=== PATIENT | female | born 1965 | race Caucasian/White ===

== ENCOUNTER → 2016-10-15 | Outpatient (CLI) | payer OTHER | END | disposition home or self-care (01) | LOC: MAMMO 12:09 | DX: Z12.31 Encounter for screening mammogram for malignant neoplasm of breast (principal) ==

== ENCOUNTER → 2016-12-20 | Day surgery (SDC) | payer OTHER ==
[~2016-12-20] VITALS: Ht 177.8 cm; Wt 81.6 kg
[~2016-12-20] MED LIST: AMITRIPTYLINE25 MG PO; CYMBALTA20 M1 PO; DILANTIN100 MG PO; VALIUM5 MG PO
--- NOTE | ~2016-12-20 | O ---
[place], [place] OPERATIVE NOTE NAME: REMBERTO KUMARI UNIT #: [id number] ROOM: DOCTOR: GEMMA MILES MD BIRTHDATE: [birth year] DOS: HISTORY OF PRESENT ILLNESS: This is a 51-year-old patient who presented with chief complaint of change in bowel habit, alteration in BM, periodically bright blood per stool. ALLERGIES: PENICILLIN. FAMILY HISTORY: Noncontributory. PAST SURGICAL HISTORY: Hysterectomy, bilateral cataracts, hypertension. PAST MEDICAL HISTORY: Hypertension, seizure. SOCIAL HISTORY: Smoker, nonalcohol consumer. PROCEDURE: Today's procedure as part of investigation is colonoscopy. PREMEDICATION: Versed and Diprivan. SCOPE: Olympus folding colonoscope 10L video. REPORT: After putting the patient in the left lateral position and after application of lubricant to rectal pouch and digital examination, scope was introduced. Thereafter, under direct visualization, I advanced through the length of colon without difficulty. Scattered diverticulosis was identified. Base of the cecum explored, appendiceal orifice identified, and ileocecal valve was defined. No other acute pathology was noticed. The patient extubated, tolerated procedure well. IMPRESSION: Diverticulosis, rectal bleed could have been from superficial mucosal bleed. PLAN AND DISCUSSION: An element of IBS with diarrhea dominance could be the possibility of her abdominal distress. Therefore, dicyclomine 10 mg 1 every day would be recommended. As far as rectal bleed, a trial of hemorrhoids suppository Preparation H one at bedtime for 3 nights in a row would be used. DIET: High fiber diet. ACTIVITY: Ad cheyenne. FOLLOWUP: Routinely with you in office and with us in GI Clinic. [place], [place] OPERATIVE NOTE NAME: JOSÉ MIGUEL KUMARIMARY UNIT #: [id number] ROOM: DOCTOR: GEMMA MILES MD BIRTHDATE: [birth year] GEMMA MILES MD CM:OPRECORD:OPERATIVE NOTE [id number] GEMMA MILES MD 12/20/16 1623 interface
[2016-12-20 13:15] VITALS: BP 119/77
[2016-12-20 15:55] VITALS: BP 122/86
== END | disposition home or self-care (01) ==
LOC: SDC 12-17 12:30
DX: K57.30 Diverticulosis of large intestine without perforation or abscess without bleeding (principal); I10 Essential (primary) hypertension; F17.210 Nicotine dependence, cigarettes, uncomplicated; J44.9 Chronic obstructive pulmonary disease, unspecified; F41.9 Anxiety disorder, unspecified; Z86.73 Personal history of transient ischemic attack (TIA), and cerebral infarction without residual deficits; Z88.0 Allergy status to penicillin; Z90.710 Acquired absence of both cervix and uterus; Z83.3 Family history of diabetes mellitus

== ENCOUNTER → 2017-02-07 | Outpatient (CLI) | payer OTHER | END | disposition home or self-care (01) | LOC: MRI 08:50 | DX: S09.90XA Unspecified injury of head, initial encounter (principal); G40.909 Epilepsy, unspecified, not intractable, without status epilepticus; R41.3 Other amnesia; X58.XXXA Exposure to other specified factors, initial encounter; Y93.89 Activity, other specified; Y92.89 Other specified places as the place of occurrence of the external cause; Y99.8 Other external cause status ==

== ENCOUNTER 2017-04-05 18:38 | Emergency (ER) | payer OTHER ==
[~2017-04-05] VITALS: Wt 81.6 kg
[2017-04-05 18:42] VITALS: BP 151/80
== END 2017-04-05 20:08 | disposition home or self-care (01) ==
LOC: ED 18:38
DX: S20.211A Contusion of right front wall of thorax, initial encounter (principal); F17.200 Nicotine dependence, unspecified, uncomplicated; Z90.49 Acquired absence of other specified parts of digestive tract; Z88.0 Allergy status to penicillin; W01.0XXA Fall on same level from slipping, tripping and stumbling without subsequent striking against object, initial encounter; Y93.01 Activity, walking, marching and hiking; Y92.023 Bedroom in mobile home as the place of occurrence of the external cause; Y99.8 Other external cause status

== ENCOUNTER 2017-05-10 16:42 | Emergency (ER) | payer OTHER ==
[~2017-05-10] VITALS: Ht 165.1 cm; Wt 77.1 kg
[2017-05-10 18:15] VITALS: BP 134/84
== END 2017-05-10 20:06 | disposition home or self-care (01) ==
LOC: ED 16:42
DX: R51 Headache (principal); R03.0 Elevated blood-pressure reading, without diagnosis of hypertension; F17.200 Nicotine dependence, unspecified, uncomplicated; Z88.0 Allergy status to penicillin; Z79.899 Other long term (current) drug therapy

== ENCOUNTER 2017-10-28 21:55 | Emergency (ER) | payer OTHER ==
[~2017-10-28] VITALS: Ht 170.1 cm; Wt 89.8 kg
[2017-10-28 22:00] VITALS: BP 128/68
[2017-10-28] MEDS ORDERED: IBUPROFEN600 MG PO (22:44)
== END 2017-10-28 23:43 | disposition home or self-care (01) ==
LOC: ED 21:55
DX: M25.532 Pain in left wrist (principal); M25.562 Pain in left knee; Z88.1 Allergy status to other antibiotic agents; F17.200 Nicotine dependence, unspecified, uncomplicated; Z90.49 Acquired absence of other specified parts of digestive tract; Z79.899 Other long term (current) drug therapy

== ENCOUNTER → 2018-04-08 | Outpatient (CLI) | payer OTHER ==
[~2018-04-08] MED LIST changes: +IBUPROFEN600 MG PO
[2018-04-08 11:43] LABS: BASO # 0.1 10*3/uL (0.0-0.1); BASO % 0.5 % (0.0-1.0); EOS # 0.1 10*3/uL (0.0-0.4); HEMATOCRIT 39.2 % (37.0-47.0); LYMPH # 1.7 10*3/uL (1.3-4.4); LYMPH % 17.6 % (27.0-41.0); MEAN CORPUSCULAR HGB 30.2 pg (27.0-31.0); MEAN CORPUSCULAR HGB CONC 33.2 g/dl (33.0-37.0); MEAN PLATELET VOLUME 10.6 fl (9.6-12.3); MONO # 0.8 10*3/uL (0.1-1.0); MONO % 8.4 % (3.0-9.0); PLATELET COUNT AUTOMATED 224 10*3/uL (130-400); RED BLOOD COUNT 4.31 10*6/uL (4.10-5.10); RED CELL DISTRI WIDTH 13.3 % (0-14.5); WHITE BLOOD COUNT 9.7 10*3/uL (4.8-10.8)
[2018-04-08 12:18] LABS: ALBUMIN 3.5 gm/dl (3.1-4.5); ALKALINE PHOSPHATASE 112 U/L (45-117); SGOT/AST 16 IU/L (3-35); SGPT/ALT 17 U/L (12-78); TOTAL PROTEIN 8.4 gm/dL (6.4-8.2)
[2018-04-08 12:23] LABS: BILIRUBIN, DIRECT < 0.1 mg/dL (0.0-0.2)
[2018-04-09 08:11] LABS: RHEUMATOID ARTHRITIS FACTOR 16.4 IU/mL (0.0-13.9)
[2018-04-09 14:07] LABS: ANTI-RNP ANTIBODIES <0.2 AI (0.0-0.9)
[2018-04-10 13:05] LABS: PTT-LA 34.1 sec (0.0-51.9)
[2018-04-10 22:07] LABS: CCP ANTIBODIES IGG/IGA 4 units (0-19)
[2018-04-11 08:14] LABS: LUPUS DRVVT 53.6 sec (0.0-47.0)
[2018-04-11 09:08] LABS: LUPUS REFLEX INTERPRETATION Comment: (.)
[2018-04-14 17:07] LABS: HLA-B27 ANTIGEN Negative (.)
== END | disposition home or self-care (01) ==
LOC: LAB 11:17
PROVIDERS: Orthopaedic Surgery
DX: M25.50 Pain in unspecified joint (principal)

== ENCOUNTER → 2018-06-05 | Outpatient (CLI) | payer OTHER ==
[2018-06-05 09:41] LABS: ALBUMIN 3.4 gm/dl (3.1-4.5); ALKALINE PHOSPHATASE 108 U/L (45-117); BUN 6 mg/dl (7-24); CHLORIDE 103 mmol/L (98-107); CREATININE 0.74 mg/dL (0.55-1.02); POTASSIUM 3.8 mmol/L (3.5-5.1); SGOT/AST 12 IU/L (3-35); SGPT/ALT 17 U/L (12-78); SODIUM 135 mmol/L (136-145); TOTAL PROTEIN 7.7 gm/dL (6.4-8.2)
== END | disposition home or self-care (01) ==
LOC: CT 05-29 09:00
PROVIDERS: Family Medicine
DX: J44.9 Chronic obstructive pulmonary disease, unspecified (principal); R63.4 Abnormal weight loss; K62.5 Hemorrhage of anus and rectum; H65.193 Other acute nonsuppurative otitis media, bilateral; Z90.49 Acquired absence of other specified parts of digestive tract

== ENCOUNTER → 2018-10-22 | Outpatient (CLI) | payer OTHER ==
[2018-10-22 12:49] LABS: BASO # 0.1 10*3/uL (0.0-0.1); BASO % 0.9 % (0.0-1.0); EOS # 0.3 10*3/uL (0.0-0.4); EOS % 5.4 % (1.0-4.0); HEMATOCRIT 39.7 % (37.0-47.0); LYMPH # 1.6 10*3/uL (1.3-4.4); LYMPH % 26.7 % (27.0-41.0); MEAN CORPUSCULAR HGB 31.1 pg (27.0-31.0); MEAN CORPUSCULAR HGB CONC 32.7 g/dl (33.0-37.0); MEAN PLATELET VOLUME 10.7 fl (9.6-12.3); MONO # 0.6 10*3/uL (0.1-1.0); MONO % 9.9 % (3.0-9.0); NEUT # 3.3 10*3/uL (2.3-7.9); NEUT % 56.8 % (47.0-73.0); PLATELET COUNT AUTOMATED 200 10*3/uL (130-400); RED BLOOD COUNT 4.18 10*6/uL (4.10-5.10); RED CELL DISTRI WIDTH 13.2 % (0-14.5); WHITE BLOOD COUNT 5.9 10*3/uL (4.8-10.8)
[2018-10-22 13:01] LABS: BILIRUBIN NEGATIVE (NEGATIVE); BLOOD NEGATIVE (NEGATIVE); CLARITY SL CLOUDY (CLEAR); COLOR YELLOW (YELLOW); GLUCOSE NEGATIVE (NEGATIVE); KETONE NEGATIVE (NEGATIVE); LEUKO ESTERASE NEGATIVE (NEGATIVE); NITRITE NEGATIVE (NEGATIVE); SPECIFIC GRAVITY 1.015 (1.005-1.030); UROBILINOGEN 0.2 E.U./dl (0.2-1.0)
[2018-10-22 13:13] LABS: ALBUMIN 3.5 gm/dl (3.1-4.5); ALKALINE PHOSPHATASE 108 U/L (45-117); BUN 6 mg/dl (7-24); CHLORIDE 106 mmol/L (98-107); CREATININE 0.73 mg/dL (0.55-1.02); POTASSIUM 3.6 mmol/L (3.5-5.1); SGOT/AST 18 IU/L (3-35); SGPT/ALT 30 U/L (12-78); SODIUM 141 mmol/L (136-145); TOTAL PROTEIN 7.5 gm/dL (6.4-8.2)
[2018-10-22 13:25] LABS: BACTERIA TRACE; MUCOUS 2+; WBC 0-2 wbc/hpf (0-5)
== END | disposition home or self-care (01) ==
LOC: US 09:30 → LAB 10:26
PROVIDERS: Family Medicine
DX: Z12.31 Encounter for screening mammogram for malignant neoplasm of breast (principal); N39.0 Urinary tract infection, site not specified; R63.4 Abnormal weight loss; R30.0 Dysuria

== ENCOUNTER → 2018-12-16 | Outpatient (CLI) | payer OTHER | END | disposition home or self-care (01) | LOC: US 11-17 13:30 | DX: N28.89 Other specified disorders of kidney and ureter (principal); R30.0 Dysuria ==

== ENCOUNTER 2019-06-17 12:46 | Emergency (ER) | payer OTHER ==
[2019-06-17 13:28] LABS: BASO % 0.4 % (0.0-1.0); EOS # 0.2 10*3/uL (0.0-0.4); EOS % 1.9 % (1.0-4.0); HEMATOCRIT 41.7 % (37.0-47.0); HEMOGLOBIN 13.5 g/dl (12.0-16.0); LYMPH # 1.3 10*3/uL (1.3-4.4); LYMPH % 11.6 % (27.0-41.0); MEAN CELL VOLUME 94.3 fl (81.0-99.0); MEAN CORPUSCULAR HGB 30.5 pg (27.0-31.0); MEAN CORPUSCULAR HGB CONC 32.4 g/dl (33.0-37.0); MONO # 0.8 10*3/uL (0.1-1.0); NEUT # 8.5 10*3/uL (2.3-7.9); NEUT % 78.6 % (47.0-73.0); PLATELET COUNT AUTOMATED 201 10*3/uL (130-400); RED BLOOD COUNT 4.42 10*6/uL (4.10-5.10); RED CELL DISTRI WIDTH 13.3 % (0-14.5); WHITE BLOOD COUNT 10.8 10*3/uL (4.8-10.8)
[2019-06-17 13:39] LABS: ACT PARTIAL THROMBO TIME 22.8 SECONDS (20.0-32.1); INTERNATIONAL NORM RATIO 0.9 (2.0-3.5)
[2019-06-17 13:43] LABS: ALBUMIN 3.5 gm/dl (3.1-4.5); ALKALINE PHOSPHATASE 132 U/L (45-117); BUN 11 mg/dl (7-24); CHLORIDE 102 mmol/L (98-107); CREATININE 0.72 mg/dL (0.55-1.02); POTASSIUM 3.9 mmol/L (3.5-5.1); SGOT/AST 30 IU/L (3-35); SGPT/ALT 56 U/L (12-78); SODIUM 133 mmol/L (136-145); TOTAL PROTEIN 7.8 gm/dL (6.4-8.2)
[2019-06-17 16:16] VITALS: BP 163/73
[2019-06-17] MEDS ORDERED: PERCOCET 5-3251 EACH PO (17:25)
== END 2019-06-17 17:45 | disposition home or self-care (01) ==
LOC: ED 12:46
PROVIDERS: Emergency Medicine
DX: S52.531A Colles' fracture of right radius, initial encounter for closed fracture (principal); J44.9 Chronic obstructive pulmonary disease, unspecified; F17.200 Nicotine dependence, unspecified, uncomplicated; Z86.73 Personal history of transient ischemic attack (TIA), and cerebral infarction without residual deficits; Z88.0 Allergy status to penicillin; Z79.899 Other long term (current) drug therapy; Z90.49 Acquired absence of other specified parts of digestive tract; W19.XXXA Unspecified fall, initial encounter; Y93.01 Activity, walking, marching and hiking; Y92.093 Driveway of other non-institutional residence as the place of occurrence of the external cause; Y99.8 Other external cause status

== ENCOUNTER → 2019-07-03 | Outpatient (CLI) | payer OTHER ==
[~2019-07-03] MED LIST changes: +PERCOCET 5-3251 EACH PO
== END | disposition home or self-care (01) ==
LOC: CT 07-01 16:00
DX: S52.501A Unspecified fracture of the lower end of right radius, initial encounter for closed fracture (principal); S52.601A Unspecified fracture of lower end of right ulna, initial encounter for closed fracture; M25.431 Effusion, right wrist; X58.XXXD Exposure to other specified factors, subsequent encounter; Y93.89 Activity, other specified; Y92.89 Other specified places as the place of occurrence of the external cause; Y99.8 Other external cause status

== ENCOUNTER 2019-07-21 11:21 | Emergency (ER) | payer OTHER ==
[~2019-07-21] VITALS: Ht 157.4 cm; Wt 54.4 kg
[2019-07-21 11:44] LABS: HEMATOCRIT 34.1 % (37.0-47.0); HEMOGLOBIN 11.9 g/dl (12.0-16.0); MEAN CELL VOLUME 88.1 fl (81.0-99.0); MEAN CORPUSCULAR HGB 30.7 pg (27.0-31.0); MEAN CORPUSCULAR HGB CONC 34.9 g/dl (33.0-37.0); MEAN PLATELET VOLUME 9.6 fl (9.6-12.3); PLATELET COUNT AUTOMATED 491 10*3/uL (130-400); RED BLOOD COUNT 3.87 10*6/uL (4.10-5.10); WHITE BLOOD COUNT 16.2 10*3/uL (4.8-10.8)
[2019-07-21 11:54] LABS: ACT PARTIAL THROMBO TIME 28.5 SECONDS (20.0-32.1); INTERNATIONAL NORM RATIO 0.9 (2.0-3.5)
[2019-07-21 11:59] LABS: ALBUMIN 2.7 gm/dl (3.1-4.5); ALKALINE PHOSPHATASE 331 U/L (45-117); BUN 9 mg/dl (7-24); CHLORIDE 81 mmol/L (98-107); CREATININE 0.51 mg/dL (0.55-1.02); POTASSIUM 3.5 mmol/L (3.5-5.1); SGOT/AST 55 IU/L (3-35); SGPT/ALT 52 U/L (12-78); TOTAL PROTEIN 7.3 gm/dL (6.4-8.2)
[2019-07-21 12:04] LABS: TOTAL CELLS COUNTED 100 #CELLS
[2019-07-21 12:05] LABS: PLATELET SUFFICIENCY HIGH (NORMAL); SODIUM 118 mmol/L (136-145); TROPONIN I < 0.015 ng/ml (<0.045); VACUOLATION OF NEUTROPHILS SLIGHT
[2019-07-21 15:22] VITALS: BP 137/79
== END 2019-07-21 15:36 | disposition short-term general hospital (02) ==
LOC: ED 11:21
PROVIDERS: Emergency Medicine
DX: S12.400A Unspecified displaced fracture of fifth cervical vertebra, initial encounter for closed fracture (principal); J93.9 Pneumothorax, unspecified; E87.1 Hypo-osmolality and hyponatremia; F17.200 Nicotine dependence, unspecified, uncomplicated; Z88.0 Allergy status to penicillin; Z79.899 Other long term (current) drug therapy; W10.8XXA Fall (on) (from) other stairs and steps, initial encounter; Y93.89 Activity, other specified; Y92.89 Other specified places as the place of occurrence of the external cause; Y99.8 Other external cause status

== ENCOUNTER 2020-02-08 20:48 | Inpatient (IN) | payer OTHER ==
[2020-02-08] VITALS (11 sets, daily range): BP systolic 78–127; BP diastolic 42–82
[~2020-02-08] VITALS: Ht 162.6 cm; Wt 61.4 kg
--- NOTE | 2020-02-08 20:49 | NUR ---
PATIENT STARTED VOMITING UPON ARRIVAL. VOMIT IS WHITE IN COLOR, NO DISTRESS NOTED AT THIS TIME. SUCTION SET UP AT BEDSIDE.
--- NOTE | 2020-02-08 20:59 | NUR ---
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 MS FUNEZ ALSO REPORTS A NOTE WAS FOUND WITH PT THAT STATED "EVERONE BEING MEAN TO ME, GOD WILL" AND THEN SCRIBBLES AFTER IT.FAMILY CONCERN WITH POSSIBILITY PT MAY HAVE TAKEN TOO MUCH MEDICATION. MD CARLISLE UPDATED WITH INFORMATION OBTAINED FROM SISTER Amelia ARTHUR.
--- NOTE | 2020-02-08 21:10 | NUR ---
PATIENT STARTING TO BE SLIGHTLY COMBATIVE AND TENSING UP AT THIS TIME. DR CARLISLE AWARE. ORDER FOR ATIVAN GIVEN, DR CARLISLE TO ENTER ORDER.
[2020-02-08] MEDS ORDERED: PROPRANOLOL HCL10 MG PO (21:26)
[2020-02-08] MEDS ORDERED: TOPIRAMATE50 M2 PO (21:27)
[2020-02-08] MEDS ORDERED: REXULTI2 MG PO (21:28)
--- NOTE | 2020-02-08 21:34 | NUR ---
PATIENT RESTING COMFORTABLY IN BED AT THIS TIME AFTER ADMINISTERATION OF ATIVAN PER MD ORDER. IVF INFUSING PER ORDERS. RN WILL CONTINUE TO MONITOR.
[2020-02-08 21:36] LABS: BASO # 0.1 10*3/uL (0.0-0.1); BASO % 0.5 % (0.0-1.0); EOS # 0.4 10*3/uL (0.0-0.4); EOS % 2.6 % (1.0-4.0); HEMATOCRIT 37.8 % (37.0-47.0); LYMPH # 2.3 10*3/uL (1.3-4.4); LYMPH % 15.2 % (27.0-41.0); MEAN CORPUSCULAR HGB CONC 33.3 g/dl (33.0-37.0); MEAN PLATELET VOLUME 10.3 fl (9.6-12.3); MONO # 1.2 10*3/uL (0.1-1.0); MONO % 8.1 % (3.0-9.0); NEUT # 10.9 10*3/uL (2.3-7.9); NEUT % 73.1 % (47.0-73.0); PLATELET COUNT AUTOMATED 266 10*3/uL (130-400); WHITE BLOOD COUNT 14.9 10*3/uL (4.8-10.8)
[2020-02-08 21:38] LABS: BILIRUBIN NEGATIVE; CLARITY TURBID (CLEAR); COLOR YELLOW (YELLOW); GLUCOSE NEGATIVE; KETONE NEGATIVE
[2020-02-08 21:39] LABS: BLOOD NEGATIVE (NEGATIVE); LEUKO ESTERASE NEGATIVE (NEGATIVE); NITRITE NEGATIVE (NEGATIVE); PH 8.5 (4.5-8.0); SPECIFIC GRAVITY 1.015 (1.001-1.030); UROBILINOGEN 0.2 E.U./dl (0.0-1.0)
[2020-02-08 21:43] LABS: BACTERIA 2+; RBC 0-2 rbc/hpf (0-2); WBC 0-2 wbc/hpf (0-5)
[2020-02-08 21:45] LABS: URINE AMPHETAMINES < 1000 (1000ng/ml); URINE BARBITURATES < 200 (200ng/ml); URINE BENZODIAZEPINES < 200 (200ng/ml); URINE CANNABINOIDS (THC) < 50 (50ng/ml); URINE COCAINE < 300 (300ng/ml); URINE METHADONE < 300 (300ng/ml); URINE OPIATES < 300 (300ng/ml)
[2020-02-08 21:46] LABS: URINE PHENCYCLIDINE < 25 (25ng/ml)
[2020-02-08 21:48] LABS: ACT PARTIAL THROMBO TIME 22.8 SECONDS (20.0-32.1)
[2020-02-08 21:52] LABS: ACETAMINOPHEN (TYLENOL) 14.8 ug/ml (10-30); ALBUMIN 3.5 gm/dl (3.1-4.5); ALKALINE PHOSPHATASE 159 U/L (45-117); BUN 9 mg/dl (7-24); CHLORIDE 97 mmol/L (98-107); CREATININE 0.82 mg/dL (0.55-1.02); POTASSIUM 3.9 mmol/L (3.5-5.1); SGOT/AST 50 IU/L (3-35); SGPT/ALT 47 U/L (12-78); SODIUM 131 mmol/L (136-145); TOTAL PROTEIN 7.3 gm/dL (6.4-8.2)
[2020-02-08 21:53] LABS: ETHYL ALCOHOL < 3.0 mg/dl (<3); FREE T4 0.69 ng/dl (0.76-1.46); TROPONIN I < 0.015 ng/ml (<0.045)
--- NOTE | 2020-02-08 22:05 | NUR ---
PATIENT APPEARS TO BE HAVING SEIZURE AT THIS TIME. PATIENT CONTRACTED FOR APPROXIMATELY [address] ORESTES ALFORD.
--- NOTE | 2020-02-08 22:06 | NUR ---
SPOKE WITH OMEGA AT [facility]. PER OMEGA: TREAT SXS: POSSIBLE BUT NOT LIMITED TO - DROWSINESS, HYPOTENSION, HYPERTENSION, TACHYCARDIA, BRADYCARDIA, SEIZURE ACTIVITIES (TX WITH BENZO'S LIBRAL AMOUNT) MONITOR: VITALS, IV NAC, OBS OVERNIGHT, MAY TAKE A WHILE FOR PATIENT TO COME AROUND
--- NOTE | 2020-02-08 22:30 | NUR ---
BLOOD PRESSURE 86/55, DR CARLISLE AWARE. PRESSURE BAGGING FLUIDS IN AT THIS TIME.
--- NOTE | 2020-02-08 22:50 | NUR ---
DR CARLISLE IN WITH RESIDENTS AT THIS TIME FOR CENTRAL LINE INSERTION. PATIENT UNABLE TO SIGN CONSENT AT THIS TIME DUE TO BEING LETHARGIC.
[2020-02-09] VITALS (63 sets, daily range): BP systolic 94–148; BP diastolic 38–93
--- NOTE | 2020-02-09 00:08 | NUR ---
PATIENT HAS ABRASION TO RIGHT SIDE OF CHEEK, LEFT ARM HAS MULTIPLE SMALL HEALING SCABS AT THIS TIME. A COUPLE SCATTERED BRUISES NOTED ON BODY.
--- NOTE | 2020-02-09 00:15 | NUR ---
POSION CONTROL CALLED FOR UPDATE ON PATIENT AT THIS TIME. RECOMMENDATIONS: STARTING MUCOMYST AND ASA LEVEL [id number], IF ASA IS 30 OR GREATER PATIENT MAY NEED BICARB DRIP.
--- NOTE | 2020-02-09 00:25 | NUR ---
A 54, admitted to [facility]U, under the services of LAZARUS Murillo DO with a diagnosis of DRUG OVERDOSE. Chief complaint is DRUG OVERDOSE, FOUND UNRESPONSIVE. Patient arrived via stretcher from ER. Monitor applied. Initial assessment completed. Vital signs taken and recorded. LAZARUS MURILLO DO notified of admission to the unit. Orders received. See assessment for past medical history, medications and allergies. Patient and/or family oriented to unit. [facility] visitation policy reviewed. Clothing/patient valuable form completed. SHAVONNE LARSEN
[2020-02-09] MEDS ORDERED: SYMB160 INH (00:47)
[2020-02-09] MEDS ORDERED: VITAMIN D350 MCG PO (00:48)
[2020-02-09] MEDS ORDERED: Ventolin 02.5 MG/3 M INH (00:49)
--- NOTE | 2020-02-09 00:52 | NUR ---
MED REC UPDATED TO REFILLED PERSCRIPTIONS WITHIN THE LAST MONTH, PT. UNABLE TO VERIFY HOME MEDS. SHAVONNE LARSEN RN
[2020-02-09 06:10] LABS: BASO % 0.5 % (0.0-1.0); EOS # 0.2 10*3/uL (0.0-0.4); EOS % 3.3 % (1.0-4.0); HEMATOCRIT 34.5 % (37.0-47.0); LYMPH # 1.9 10*3/uL (1.3-4.4); LYMPH % 26.6 % (27.0-41.0); MEAN CELL VOLUME 90.1 fl (81.0-99.0); MEAN CORPUSCULAR HGB 30.3 pg (27.0-31.0); MEAN CORPUSCULAR HGB CONC 33.6 g/dl (33.0-37.0); MEAN PLATELET VOLUME 10.2 fl (9.6-12.3); MONO # 1.4 10*3/uL (0.1-1.0); MONO % 19.1 % (3.0-9.0); NEUT # 3.7 10*3/uL (2.3-7.9); NEUT % 50.2 % (47.0-73.0); PLATELET COUNT AUTOMATED 258 10*3/uL (130-400); RED BLOOD COUNT 3.83 10*6/uL (4.10-5.10); RED CELL DISTRI WIDTH 12.8 % (0-14.5); WHITE BLOOD COUNT 7.3 10*3/uL (4.8-10.8)
[2020-02-09 06:34] LABS: ALBUMIN 2.9 gm/dl (3.1-4.5); BUN 9 mg/dl (7-24); CHLORIDE 103 mmol/L (98-107); CREATININE 0.81 mg/dL (0.55-1.02); POTASSIUM 3.4 mmol/L (3.5-5.1); SGOT/AST 35 IU/L (3-35); SGPT/ALT 51 U/L (12-78); SODIUM 138 mmol/L (136-145); TOTAL PROTEIN 6.4 gm/dL (6.4-8.2)
[2020-02-09 06:43] LABS: ALKALINE PHOSPHATASE 127 U/L (45-117)
[2020-02-09 06:53] LABS: PHENYTOIN (DILANTIN) 47.5 ug/ml (10-20)
--- NOTE | 2020-02-09 07:30 | NUR ---
PT WILL AWAKEN TO STIMULI. PT'S SPEECH IS VERY GARBLED. PUPILS ARE DILATED BUT REACTIVE. PT WILL AT TIMES FOLLOW SIMPLE COMMANDS. PT REMAINS ON A LEVOPHED GTT. TITRATING GTT FOR MAP OF 65. IV NS AND ACETADOTE GTTS CONTINUE PER ORDER. LUNG [place] DIM. GHOSH PATNET FOR STRAW COLORED URINE. NO PERIPHERAL EDEMA NOTED AT THIS TIME.
[2020-02-09 07:52] LABS: VITAMIN D, 25-HYDROXY 32.5 ng/mL (30-100)
--- NOTE | 2020-02-09 08:19 | NUR ---
PHYSICAL THERAPY PT screen received, Pt admitted for Dilantan overdose. Please consult PT if pt has functional decline below baseline. Bruce Archibald SPT Nellie Loco PT
--- NOTE | 2020-02-09 08:27 | NUR ---
Nursing screen received and chart reviewed. Patient admitted for dilantin overdose and hypotension. If patient has a decline in ADLs, transfers, or functional mobility, please send OT orders. Thank you. Radha Garcia, OTR/L
--- NOTE | 2020-02-09 08:30 | NUR ---
PT HAD A LARGE GRREN LIQUID EMESIS. HOB ELEVATED HIGHER AND PT WAS TURNED TO HER SIDE. PT'S POX DROPPED INTO MID 80'S. 4L NC OXYGEN APPLIED. PT NOW HAS SCATTERED RHONCHI AND A MOIST COUGH. DR ALONSO NOTIFIED.
--- NOTE | 2020-02-09 08:45 | NUR ---
MEDICATED PT PER PRN ORDER WITH ZOFRAN.
--- NOTE | 2020-02-09 08:45 | NUR ---
PT CONTINUES TO FOLLOW SIMPLE COMMANDS. PT IS UNABLE TO SQUEEZE WITH HER RIGHT HAND BUT CAN SQUEEZE WITH HER LEFT HAND. A SURGICAL SCAR NOTED TO HER RIGHT WRIST. PT STIFFFENS HERSELF WHEN WE ARE ROLLING HER TO CLEAN HER OR CHANGE HER LINENS.
--- NOTE | 2020-02-09 09:30 | NUR ---
NO FURTHER EMESIS. EARLEIR ZOFRAN EFFECTIVE.
--- NOTE | 2020-02-09 09:45 | NUR ---
DR POWELL IN TO SEE PT. POISON CONTROL CALLED FOR AN UPDATE. DR ALONSO AND DR POWELL UPDATED ON THEIR SUGGESTIONS.
--- NOTE | 2020-02-09 10:20 | NUR ---
Spoke to mental health CMKarel, at [phone]. He states patient does live in an abandoned home with her muhynx-oh-rbq's son. Karel has tried to get her into assisted living but she doesn't have the income. He was looking at getting her into a homeless long term. Will need to reach out to Jeannie Joe if a referral is needed to an inpatient psych.
--- NOTE | 2020-02-09 11:00 | NUR ---
PT AWKAE AND ABLE TO FOLLOW SIMPLE COMMANDS. PT DID PULL OFF OXYGEN MULTIPLE TIMES. POX 95-100% RA. WILL LEAVE O2 OFF AT PRESENT TIME.
--- NOTE | 2020-02-09 12:16 | NUR ---
PT HAD ANOTHER SMALL GREEN EMESIS. NOT TIME YET FOR ZOFRAN. DR NORWOOD NOTIFIED. CONTINUING TO TITRATE IV LEVPHED GTT OFF ABLE FOR MAP OF 65. WILL CONTINUE TO MONITOR PT.
--- NOTE | 2020-02-09 14:00 | NUR ---
IV LEVOPHED GTT TITRATED OFF. WILL CONTINUE TO MONITOR PT.
[2020-02-09 14:10] LABS: ALKALINE PHOSPHATASE 127 U/L (45-117); BUN 6 mg/dl (7-24); CHLORIDE 105 mmol/L (98-107); CREATININE 0.57 mg/dL (0.55-1.02); POTASSIUM 3.5 mmol/L (3.5-5.1); SGOT/AST 23 IU/L (3-35); SGPT/ALT 40 U/L (12-78); SODIUM 138 mmol/L (136-145); TOTAL PROTEIN 6.5 gm/dL (6.4-8.2)
--- NOTE | 2020-02-09 14:18 | NUR ---
DR ALONSO IN TO EVALUATE PT AGAIN.
--- NOTE | 2020-02-09 14:30 | NUR ---
SPEECH PATHOLOGY Nursing screen complete. This dept. will be available if speech or swallowing concerns arise. SYDNYE BAEZ MSCCC-MORTGAGE COUNSELOR
--- NOTE | 2020-02-09 15:03 | NUR ---
DR ALONSO UPDATED ON PT'S BASELINE AFTER I CALLED AND SPOKE WITH PT'S SISTER,ELA,. ELA STATES PT DOES NOT USUALLY HAVE GARBLED SPEECH AND IS ABLE TO AMBULATE WITHOUT ASSISTIVE DEVICES. DR ALONSO ALSO NOTIFIED OF DILANTIN LEVEL OF 51.4.
--- NOTE | 2020-02-09 15:03 | NUR ---
Shift chart check completed.
--- NOTE | 2020-02-09 17:11 | NUR ---
PATIENT THRASHING ABOUT, VERY STIFF AND UNABLE TO FOLLOW COMMANDS..SIDE RAILS PADDED PATIENT THROWING HEAD ABOUT
--- NOTE | 2020-02-09 17:48 | NUR ---
NURSES AIDES SITTING AT BEDSIDE THE PATIENT IS CONFUSED, TRYING TO GET UP AND PULLING AT LINES..UNABLE TO RE-ORIENT PATIENT
--- NOTE | 2020-02-09 18:24 | NUR ---
PERIODS OF THRASHING ABOUT ALTERNATING WITH PERIODS OF SLEEPING.. FREQ REMINDERS THAT SHE IS IN THE HOSPITAL AND THAT SHE HAS A GHOSH IN..PATIENT UNABLE TO FOLLOW COMMANDS BUT GET A RARE WORD OR TWO OUT
[2020-02-09 18:55] LABS: ALKALINE PHOSPHATASE 129 U/L (45-117); BUN 5 mg/dl (7-24); CHLORIDE 105 mmol/L (98-107); CREATININE 0.58 mg/dL (0.55-1.02); POTASSIUM 3.2 mmol/L (3.5-5.1); SGOT/AST 24 IU/L (3-35); SGPT/ALT 39 U/L (12-78); SODIUM 137 mmol/L (136-145); TOTAL PROTEIN 6.7 gm/dL (6.4-8.2)
--- NOTE | 2020-02-09 19:11 | NUR ---
DR ORNELAS CALLED WITH LAB RESULTS... PATIENT DRANK A JUICE & 2 APPLE SAUCE WITH ASSIST FROM STAFF
--- NOTE | 2020-02-09 19:40 | NUR ---
PT CONFUSED AND COMBATIVE. PT ATTEMPTING TO CLIMB OUT OF BED AND TEAR CLOTHES OFF. PT ALSO YELLING OUT THAT SHE WANTS TO GO TO HER BEDROOM UP STAIRS. ATTEMPTS TO REORIENT PT HAVE BEEN UNSUCCESSFUL. DR ORNELAS NOTIFIED AND NEW ORDER FOR 1:1 SITTER GIVEN.
--- NOTE | 2020-02-09 20:00 | NUR ---
PT IN BED AWAKE AND AGITATED. NODS OFF PERIODICALLY FOR APPROXIMATELY 2 OR 3 MINUTES THEN AWAKE AGAIN. CONFUSED AND COMBATIVE AT TIMES. ATTEMPTS TO GET OUT OF BED. PULLS AT CLOTHES AND TRIES TO RIP THEM OFF. ATTEMPTING TO PULL DIAPER OFF. RIGHT IJ MLC PATENT, DRESSING DRY AND INTACT, IVF'S INFUSING ORDERED WITHOUT DIFFICULTY. GHOSH PATENT FOR CLEAR SANDY URINE. RESP NONLABORED. NO ACUTE DISTRESS NOTED.
--- NOTE | 2020-02-09 20:30 | NUR ---
PT CONTINUES TO ATTEMPT TO GET OUT OF BED. PULLING AT CLOTHES AND PULLING AT BEDDING. FLOPPING ABOUT IN BED. ANY ATTEMPTS TO REORIENT PT ARE UNSUCCESSFUL. SITTING AT PT BEDSIDE FOR PT SAFETY
--- NOTE | 2020-02-09 20:45 | NUR ---
PT ATTEMPTING TO GET OUT OF BED. STATES SHE WANTS TO GO UPSTAIRS TO HER OWN BEDROOM. ATTEMPTING TO REOIRIENT PT TO SURROUNDINGS AND PT STATES THAT SHE IS GOING TO PUNCH ME IN THE FACE.
--- NOTE | 2020-02-09 20:59 | NUR ---
POISON CONTROL CALLED AND UPDATED ON LATEST LABS. THEY SAID THAT ONCE THIS ACETADOTE BAG IS DONE INFUSING NO MORE IS NEEDED. ALSO THAT MAY GIVE PT ANY BENZOS NEEDED TO KEEP PT CALM.
--- NOTE | 2020-02-09 22:45 | NUR ---
SPOKE WITH KENYETTA FROM [facility]. PATIENT INFORMATION PROVIDED. CALLBACK NUMBER PROVIDED.
--- NOTE | 2020-02-09 23:40 | NUR ---
ATIVAN AND ZOFRAN GIVEN AT THIS TIME. PATIENT THRASHING IN BED AND TRYING TO GET OUT OF BED AND SWINGING AT STAFF. WILL CONTINUE TO MONITOR.
[2020-02-10] VITALS (7 sets, daily range): BP systolic 84–125; BP diastolic 53–75
--- NOTE | 2020-02-10 00:30 | NUR ---
ATIVAN AND ZOFRAN EFFECTIVE. PATIENT RESTING COMFORTABLY AT THIS TIME. NO S/S OF DISTRESS NOTED. 1:1 AT THE BEDSIDE.
--- NOTE | 2020-02-10 02:00 | NUR ---
DR. BASILIO NOTIFIED OF PHENYTOIN RESULT. NOTED THAT RESULT HAS PREVIOUSLY PEAKED AND NOW TRENDING DOWN. WILL CONTINUE TO MONITOR.
[2020-02-10 06:05] LABS: ALBUMIN 2.7 gm/dl (3.1-4.5); ALKALINE PHOSPHATASE 115 U/L (45-117); BUN 5 mg/dl (7-24); CHLORIDE 105 mmol/L (98-107); CREATININE 0.46 mg/dL (0.55-1.02); SGOT/AST 18 IU/L (3-35); SGPT/ALT 31 U/L (12-78); SODIUM 137 mmol/L (136-145); TOTAL PROTEIN 6.2 gm/dL (6.4-8.2)
--- NOTE | 2020-02-10 06:30 | NUR ---
DR. ORNELAS NOTIFIED OF POTASSIUM LEVEL DECREASING. ORDERS RECEIVED.
[2020-02-10 06:53] LABS: BASO % 0.5 % (0.0-1.0); EOS # 0.1 10*3/uL (0.0-0.4); EOS % 1.2 % (1.0-4.0); HEMATOCRIT 32.6 % (37.0-47.0); LYMPH # 1.5 10*3/uL (1.3-4.4); LYMPH % 23.2 % (27.0-41.0); MEAN CELL VOLUME 92.6 fl (81.0-99.0); MEAN CORPUSCULAR HGB 30.7 pg (27.0-31.0); MEAN CORPUSCULAR HGB CONC 33.1 g/dl (33.0-37.0); MEAN PLATELET VOLUME 11.5 fl (9.6-12.3); MONO # 0.8 10*3/uL (0.1-1.0); MONO % 11.4 % (3.0-9.0); NEUT # 4.2 10*3/uL (2.3-7.9); NEUT % 63.2 % (47.0-73.0); RED BLOOD COUNT 3.52 10*6/uL (4.10-5.10); RED CELL DISTRI WIDTH 13.4 % (0-14.5); WHITE BLOOD COUNT 6.6 10*3/uL (4.8-10.8)
[2020-02-10 06:55] LABS: PLATELET COUNT AUTOMATED 178 10*3/uL (130-400)
--- NOTE | 2020-02-10 08:00 | NUR ---
PATIENT AWAKE AND ALERT. ORIENTED TO PERSON AND PLACE. SHE COULD STATE SHE IS IN A HOSPITAL JUST NOT WHICH SPECIFIC ONE. I&E WHEEZING NOTED. POX 96% RA. MOIST NON-PRODUCTIVE COUGH. GHOSH PATENT AND DRAINING CLEAR SANDY.
--- NOTE | 2020-02-10 09:56 | NUR ---
PATIENT HAD A LARGE EMESIS. MEDICATED WITH ZOFRAN PER PRN ORDER. WILL CONTINUE TO MONITOR.
--- NOTE | 2020-02-10 15:50 | NUR ---
PATIENT C/O NAUSEA. MEDICATED WITH ZOFRAN PER PRN ORDER.
--- NOTE | 2020-02-10 21:07 | NUR ---
Spoke with patient, she knows she is at [facility], doesnt know how she got here, but did say she tried to commit suicide by taking pills, doesnt know what ones. She states she did it, because no one likes her. I asked about family and she stated she lives with them, but they dont like her. I explained she would get the help she needed. Patient still attempting to get out of bed and is restless. Ativan given, will monitor and reassess.
[2020-02-11] VITALS: BP 101/63
[2020-02-11 04:03] VITALS: BP 109/66
[2020-02-11 05:51] LABS: BUN 7 mg/dl (7-24); CHLORIDE 105 mmol/L (98-107); CREATININE 0.54 mg/dL (0.55-1.02); POTASSIUM 3.3 mmol/L (3.5-5.1); SODIUM 137 mmol/L (136-145)
[2020-02-11 06:00] LABS: PHENYTOIN (DILANTIN) 44.6 ug/ml (10-20)
[2020-02-11 06:02] LABS: BASO % 0.4 % (0.0-1.0); EOS # 0.2 10*3/uL (0.0-0.4); EOS % 3.4 % (1.0-4.0); HEMATOCRIT 31.2 % (37.0-47.0); LYMPH # 1.5 10*3/uL (1.3-4.4); LYMPH % 28.9 % (27.0-41.0); MEAN CELL VOLUME 93.1 fl (81.0-99.0); MEAN CORPUSCULAR HGB 30.7 pg (27.0-31.0); MEAN PLATELET VOLUME 11.3 fl (9.6-12.3); MONO # 0.7 10*3/uL (0.1-1.0); MONO % 13.2 % (3.0-9.0); NEUT # 2.8 10*3/uL (2.3-7.9); NEUT % 53.9 % (47.0-73.0); PLATELET COUNT AUTOMATED 187 10*3/uL (130-400); RED BLOOD COUNT 3.35 10*6/uL (4.10-5.10); RED CELL DISTRI WIDTH 13.2 % (0-14.5); WHITE BLOOD COUNT 5.2 10*3/uL (4.8-10.8)
--- NOTE | 2020-02-11 06:03 | NUR ---
Patient has slept throughout the night after dose of ativan. Patient awoke knowing where she was but unable to comprehend that she had a catheter. Then patient began to ask where she was and why she was here.
--- NOTE | 2020-02-11 07:57 | NUR ---
[facility] NOTIFIED OF NEW CONSULT FOR .
[2020-02-11 08:00] VITALS: BP 126/66
--- NOTE | 2020-02-11 08:00 | NUR ---
PATIENT AWAKE AND ALERT. SPEECH MORE CLEAR. ALERT TO PERSON AND PLACE. LUNGS DIMINISHED. POX 95% RA. PATIENT REPEATEDLY STATES THAT SHE HAS TO USE THE RESTROOM. STAFF REPEATEDLY INFORMS THAT SHE HAS A GHOSH CATHETER. RN DISCUSSED WITH PATIENT REGARDING ATTEMPT OF SUICIDE. SHE STATES SHE DOES NOT WANT TO LIVE DUE TO NO ONE CARES FOR HER AND SHE HAS NO PLACE LIVE. NOTIFIED OF PATIENT COMMENTS. 1:1 SITTER AT BEDSIDE.
--- NOTE | 2020-02-11 10:15 | NUR ---
Notified Jeannie Garcia to see patient for possible inpatient psych.
--- NOTE | 2020-02-11 11:31 | NUR ---
CALLED SUSANNE TAFOYA VOICE MAIL LEFT REGARDING NEW CONSULT IN [facility].
[2020-02-11 12:00] VITALS: BP 108/57
--- NOTE | 2020-02-11 14:58 | NUR ---
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 she is Alert to person today when i saw her, she did know me, she has some memory impairment and she is mildly confused at times. she reports that she took all of her pills because she wanted to , she felt that no one cared and everyone left her, she told me that she just felt so sad. she denies suicidal ideation right now, she reports that she is upset with her life. she does have some learning disabilites. she probably would do best in a shelter or assisted living. since she made such a serious attempt she could benefit from an inpatient psychiatric placemeny for stabalization. i can find her a bed when she is medically stable.
[2020-02-11 16:00] VITALS: BP 119/67
--- NOTE | 2020-02-11 16:15 | NUR ---
PATIENT CLIMBING OUT OF BED. STAFF ATTEMPTING TO REORIENT PATIENT TO GET BACK IN BED. PATIENT KEEPS STATING "YOU DONT UNDERSTAND. I NEED TO GO DOWNSTAIRS TO GET THE FOOD OUT OF THE [place]." STAFF ORIENTING PATIENT THAT SHE IS IN THE HOSPITAL. SHE STATES " I KNOW IM IN THE HOSPITAL BUT I NEED TO GO DOWNSTAIRS TO GET THE FOOD OUT OF THE [place]." PATIENT VERY AGITATED. STAFF ASSISTED PATIENT BACK TO BED. AWARE AND NEW ORDER PLACED FOR ATIVAN.
--- NOTE | 2020-02-11 16:31 | NUR ---
PATIENT MEDICATED WITH ATIVAN 1MG PO PER ONE TIME ORDER. WILL CONTINUE TO MONITOR.
[2020-02-11 20:00] VITALS: BP 113/65
--- NOTE | 2020-02-11 21:17 | NUR ---
PATIENT HAS BEEN YELLING OUT. AND REFUSED MEDS TODAY PATIENT IS UPSET AND SHE WANTS TO SMOKE.
--- NOTE | 2020-02-11 22:25 | NUR ---
IV ATIVAN EFFECTIVE PATIENT RESTING WITH EYES CLOSED.
[2020-02-12] VITALS: BP 119/72
--- NOTE | 2020-02-12 02:38 | NUR ---
DR ORNELAS CALLED REGARDING PATIENTS C/O HEADACHE, STATES SHE WILL PLACE ORDER FOR MOTRIN
[2020-02-12 04:00] VITALS: BP 111/67
[2020-02-12 06:19] LABS: EOS # 0.2 10*3/uL (0.0-0.4); EOS % 5.1 % (1.0-4.0); HEMATOCRIT 29.9 % (37.0-47.0); LYMPH # 1.1 10*3/uL (1.3-4.4); LYMPH % 27.6 % (27.0-41.0); MEAN CELL VOLUME 92.3 fl (81.0-99.0); MEAN CORPUSCULAR HGB 29.9 pg (27.0-31.0); MEAN CORPUSCULAR HGB CONC 32.4 g/dl (33.0-37.0); MEAN PLATELET VOLUME 11.3 fl (9.6-12.3); MONO # 0.6 10*3/uL (0.1-1.0); MONO % 13.4 % (3.0-9.0); NEUT # 2.2 10*3/uL (2.3-7.9); NEUT % 52.7 % (47.0-73.0); PLATELET COUNT AUTOMATED 182 10*3/uL (130-400); RED BLOOD COUNT 3.24 10*6/uL (4.10-5.10); RED CELL DISTRI WIDTH 12.9 % (0-14.5); WHITE BLOOD COUNT 4.1 10*3/uL (4.8-10.8)
[2020-02-12 06:28] LABS: BUN 6 mg/dl (7-24); CHLORIDE 103 mmol/L (98-107); CREATININE 0.47 mg/dL (0.55-1.02); POTASSIUM 3.7 mmol/L (3.5-5.1); SODIUM 137 mmol/L (136-145)
[2020-02-12 07:04] LABS: PHENYTOIN (DILANTIN) 40.9 ug/ml (10-20)
[2020-02-12 08:00] VITALS: BP 104/60
--- NOTE | 2020-02-12 08:00 | NUR ---
PT AWAKE AND ALERT. PT ORIENTED TO SELF. PT HAS TO BE REORIENTED TO PLACE AND TIME FREQUENTLY. PT TACHYCARDIC AT 102. OTHER VSS. LUNG [place] DIM. MOIST COUGH NOTED. GHOSH PATENT FOR STRAW COLORED URINE. NO PERIPHERAL EDEMA NOTED. SCABS NOTED TO RIGHT HAND. PT DOES ADMIT TO OVERDOSING ON HER MEDICATIONS. SHE STATED "I TOOK EVERYONE I HAD." WHEN ASKED WHY SHE TOOK THE MEDS SHE STATED "BECAUSE EVERYONE LEFT ME...NOBODY CARES." SHE ALSO STATED WHEN ASKED IF SHE HAD SOMEPLACE TO LIVE WOULD SHE HAVE TAKEN THE OVERDOSE AND SHE SAID THAT SHE WOULD NOT HAVE OVERDOSED IF SHE HAD A PLACE TO LIVE. PT DOES AHAVE A FIELD SERVICE ENGINEER THAT IS SUPPOSED TO BE WORKING ON HOUSING FOR HER BUT HE HAS NOT CONTACTED HER YET.
[2020-02-12 12:00] VITALS: BP 108/57
--- NOTE | 2020-02-12 12:07 | NUR ---
SPOKE WITH POISON CONTROL. THEY WILL CHECK BACK AGAIN LATER TONIGHT OR TOMORROW. CALL WITH ANY QUESTIONS/CONCERNS
--- NOTE | 2020-02-12 15:40 | NUR ---
ASSUMED CARE FOR PT AT THIS TIME, ONE ON ONE SITTER AT BEDSIDE. RESPIRATIONS EASY AND NONLABORED ON ROOM AIR. CALL LIGHT WITHIN REACH, SIDE RAILS UPX2.
[2020-02-12 16:00] VITALS: BP 112/58
--- NOTE | 2020-02-12 17:37 | NUR ---
GHOSH CATHETER D/C AT THIS TIME, [place] INTACT. 300 ML NOTED IN URINE COLLECTION BAG.
[2020-02-12 20:00] VITALS: BP 110/59
[2020-02-13] VITALS: BP 102/68
[2020-02-13 05:44] LABS: BUN 6 mg/dl (7-24); CHLORIDE 104 mmol/L (98-107); CREATININE 0.43 mg/dL (0.55-1.02); POTASSIUM 3.9 mmol/L (3.5-5.1); SODIUM 137 mmol/L (136-145)
[2020-02-13 05:55] LABS: PHENYTOIN (DILANTIN) 34.8 ug/ml (10-20)
[2020-02-13 06:03] LABS: BASO % 0.7 % (0.0-1.0); EOS # 0.3 10*3/uL (0.0-0.4); EOS % 7.6 % (1.0-4.0); HEMATOCRIT 30.7 % (37.0-47.0); LYMPH # 1.4 10*3/uL (1.3-4.4); LYMPH % 33.6 % (27.0-41.0); MEAN CORPUSCULAR HGB CONC 32.2 g/dl (33.0-37.0); MONO # 0.5 10*3/uL (0.1-1.0); MONO % 13.2 % (3.0-9.0); NEUT # 1.8 10*3/uL (2.3-7.9); NEUT % 44.4 % (47.0-73.0); PLATELET COUNT AUTOMATED 203 10*3/uL (130-400); RED CELL DISTRI WIDTH 12.8 % (0-14.5); WHITE BLOOD COUNT 4.1 10*3/uL (4.8-10.8)
--- NOTE | 2020-02-13 06:15 | NUR ---
PT PULLED CENTRAL LINE OUT ACCIDENTALLY WHEN GETTING UP TO BSC. DR FOX NOTIFIED.
[2020-02-13 08:00] VITALS: BP 108/79
--- NOTE | 2020-02-13 09:48 | NUR ---
IV INFUSING TO LW IV PER ORDER, FLUSHES WITH EASE. ONE ON ONE SITTER IN PLACE, CALL LIGHT WITHIN REACH.
--- NOTE | 2020-02-13 11:20 | NUR ---
IV LEAKING, Hep Lock discontinued. Site asymptomatic. Pressure applied. Sterile dressing applied. VERA SMITH
--- NOTE | 2020-02-13 11:37 | NUR ---
POISION CONTROL CALLED FOR AN UPDATE, STATES BY TOMORROW THE DILANTIN LEVEL SHOULD BE CLOSE NORMAL AND SHE SHOULD BE OKAY TO BE DISCHARGED.
[2020-02-13 12:00] VITALS: BP 111/65
--- NOTE | 2020-02-13 13:13 | NUR ---
PT REQUESTING SOMETHING FOR A HEADACHE, PRN IBUPROFEN GIVEN PER ORDER. SEE EMAR. NOISE AND LIGHT REDUCTION INEFFECTIVE, CALL LIGHT WITHIN REACH, ONE ON ONE AT BEDSIDE.
--- NOTE | 2020-02-13 14:00 | NUR ---
PT REPORTS IBUPROFEN EFFECTIVE.
[2020-02-13 16:00] VITALS: BP 107/68
--- NOTE | 2020-02-13 19:42 | NUR ---
PT. AND AIDE STATED PT WAS BATHED THIS MORNING WELL YESTERDAY MORNING. SHAVONNE LARSEN RN
[2020-02-13 20:00] VITALS: BP 109/64
--- NOTE | 2020-02-13 20:11 | NUR ---
PT. RESTING IN BED READING AT PRESENT. HEP LOCK REMAINS OUT DUE TO PATIENTS REMOVAL OF PREVIOUS IV. LUNGS DIMINISHED BUT CLEAR BILAT, PULSE OX 97% ON RA. ABDOMEN SOFT, NONDISTENDED AND NORMO. NO PERIPHERAL EDEMA NOTED. PT. COOPERATIVE WITH CARE. UP TO BSC WITH MINIMAL ASSIST. 1:1 SITTER MAINTAINED. SHAVONNE LARSEN RN
[2020-02-14] VITALS: BP 106/56
[2020-02-14 04:00] VITALS: BP 101/55
[2020-02-14 06:24] LABS: BASO % 0.7 % (0.0-1.0); EOS # 0.3 10*3/uL (0.0-0.4); EOS % 6.8 % (1.0-4.0); HEMATOCRIT 30.6 % (37.0-47.0); LYMPH # 1.4 10*3/uL (1.3-4.4); LYMPH % 31.2 % (27.0-41.0); MEAN CELL VOLUME 93.9 fl (81.0-99.0); MEAN CORPUSCULAR HGB 30.4 pg (27.0-31.0); MEAN CORPUSCULAR HGB CONC 32.4 g/dl (33.0-37.0); MEAN PLATELET VOLUME 10.4 fl (9.6-12.3); MONO # 0.6 10*3/uL (0.1-1.0); MONO % 14.5 % (3.0-9.0); NEUT % 46.1 % (47.0-73.0); PLATELET COUNT AUTOMATED 216 10*3/uL (130-400); RED BLOOD COUNT 3.26 10*6/uL (4.10-5.10); RED CELL DISTRI WIDTH 12.8 % (0-14.5); WHITE BLOOD COUNT 4.4 10*3/uL (4.8-10.8)
--- NOTE | 2020-02-14 07:45 | NUR ---
RESTING IN BED. DENIES ANY COMPLAINTS. ALERT TO PERSON AND PLACE, NOT TIME. THINKS IT IS 2012. DENIES ANY THOUHTS OF HARMING HERSELF.
[2020-02-14 08:00] VITALS: BP 102/56
--- NOTE | 2020-02-14 10:30 | NUR ---
In multidisciplinary discharge planning meeting patient is medically stable for discharge to an inpatient psych. Jeannie Joe notified.
--- NOTE | 2020-02-14 11:41 | NUR ---
PRINCIPAL CLERK FAXED REFERRAL TO GENERATIONS.
[2020-02-14 12:00] VITALS: BP 119/73
[2020-02-14 16:00] VITALS: BP 105/51
--- NOTE | 2020-02-14 16:02 | NUR ---
SUSANNE TAFOYA CALLED AND STATES THAT [facility] HAS ACCEPTED THE PATIENT. PINK SLIP TO BE DONE AND FAXED TO [phone]
--- NOTE | 2020-02-14 18:58 | NUR ---
[facility], ALL BELONGS WITH PATIENT. VITAL SIGNS STABLE. REPORT GIVEN TO RN AT [facility]. SHAVONNE LARSEN RN
== END 2020-02-14 18:58 | disposition other institution (70) | DRG 817 ==
LOC: ED 20:48 → ICCU 23:13 → EDHOLD 23:13 → ICCU 23:40
PROVIDERS: Emergency Medicine; Hospitalist; Internal Medicine; Student in an Organized Health Care Education/Training Program; ADMIT Family Medicine; ATTEND Family Medicine
PROC: 02HV33Z Insertion of Infusion Device into Superior Vena Cava, Percutaneous Approach (ICD-10-PCS; principal; 2020-02-08)
DX: T44.7X2A Poisoning by beta-adrenoreceptor antagonists, intentional self-harm, initial encounter (principal); R57.0 Cardiogenic shock; T42.0X2A Poisoning by hydantoin derivatives, intentional self-harm, initial encounter; E87.1 Hypo-osmolality and hyponatremia; G40.909 Epilepsy, unspecified, not intractable, without status epilepticus; R00.1 Bradycardia, unspecified; D72.829 Elevated white blood cell count, unspecified; E87.8 Other disorders of electrolyte and fluid balance, not elsewhere classified; R73.9 Hyperglycemia, unspecified; R45.851 Suicidal ideations; F33.2 Major depressive disorder, recurrent severe without psychotic features; R74.0 Nonspecific elevation of levels of transaminase and lactic acid dehydrogenase [LDH]; F41.9 Anxiety disorder, unspecified; D64.9 Anemia, unspecified; E87.6 Hypokalemia; E83.41 Hypermagnesemia; I10 Essential (primary) hypertension; Z20.828 Contact with and (suspected) exposure to other viral communicable diseases; R82.71 Bacteriuria; E43 Unspecified severe protein-calorie malnutrition; T17.918A Gastric contents in respiratory tract, part unspecified causing other injury, initial encounter; X58.XXXA Exposure to other specified factors, initial encounter; Y93.89 Activity, other specified; Y99.8 Other external cause status; Y92.89 Other specified places as the place of occurrence of the external cause; Z88.0 Allergy status to penicillin; Z90.49 Acquired absence of other specified parts of digestive tract; Z98.49 Cataract extraction status, unspecified eye; Z83.3 Family history of diabetes mellitus; Z79.899 Other long term (current) drug therapy; Z68.23 Body mass index [BMI] 23.0-23.9, adult

== ENCOUNTER → 2020-07-14 | Outpatient (CLI) | payer OTHER ==
[~2020-07-14] MED LIST changes: +PROPRANOLOL HCL10 MG PO; +REXULTI2 MG PO; +SYMB160 INH; +TOPIRAMATE50 M2 PO; +VITAMIN D350 MCG PO; +Ventolin 02.5 MG/3 M INH
== END | disposition home or self-care (01) ==
LOC: RAD 14:19
PROVIDERS: ATTEND Family Medicine
DX: M25.431 Effusion, right wrist (principal); S52.611D Displaced fracture of right ulna styloid process, subsequent encounter for closed fracture with routine healing; X58.XXXD Exposure to other specified factors, subsequent encounter

== ENCOUNTER 2020-10-02 08:55 | Emergency (ER) | payer OTHER ==
[~2020-10-02] VITALS: Ht 170.1 cm; Wt 72.6 kg
[2020-10-02 09:04] VITALS: BP 121/87
[2020-10-02 09:57] LABS: BASO % 0.8 % (0.0-1.0); EOS # 0.2 10*3/uL (0.0-0.4); EOS % 4.2 % (1.0-4.0); HEMATOCRIT 40.6 % (37.0-47.0); LYMPH # 1.3 10*3/uL (1.3-4.4); LYMPH % 26.3 % (27.0-41.0); MEAN CELL VOLUME 90.6 fl (81.0-99.0); MEAN CORPUSCULAR HGB 29.5 pg (27.0-31.0); MEAN CORPUSCULAR HGB CONC 32.5 g/dl (33.0-37.0); MONO # 0.6 10*3/uL (0.1-1.0); NEUT # 2.8 10*3/uL (2.3-7.9); NEUT % 56.3 % (47.0-73.0); PLATELET COUNT AUTOMATED 263 10*3/uL (130-400); RED BLOOD COUNT 4.48 10*6/uL (4.10-5.10); RED CELL DISTRI WIDTH 13.1 % (0-14.5)
[2020-10-02 10:14] LABS: ALBUMIN 3.6 gm/dl (3.1-4.5); ALKALINE PHOSPHATASE 138 U/L (45-117); BUN 7 mg/dl (7-24); CHLORIDE 100 mmol/L (98-107); CREATININE 0.59 mg/dL (0.55-1.02); SGOT/AST 17 IU/L (3-35); SGPT/ALT 24 U/L (12-78); SODIUM 132 mmol/L (136-145); TOTAL PROTEIN 7.8 gm/dL (6.4-8.2)
[2020-10-02 10:16] LABS: TROPONIN I < 0.015 ng/ml (<0.045)
[2020-10-02 10:27] LABS: PHENYTOIN (DILANTIN) 8.2 ug/ml (10-20)
[2020-10-02 12:13] LABS: BILIRUBIN Negative (Negative); BLOOD Negative (Negative); CLARITY Clear (Clear); COLOR Yellow (Yellow); GLUCOSE Negative (Negative); KETONE Negative (Negative); LEUKO ESTERASE Negative (Negative); NITRITE Negative (Negative); PH 6.5 (4.5-8.0); SPECIFIC GRAVITY <= 1.005 (1.001-1.030); UROBILINOGEN 0.2 E.U./dl (0.0-1.0)
[2020-10-02 12:28] LABS: BACTERIA TRACE; RBC 0-2 rbc/hpf (0-2); WBC 0-2 wbc/hpf (0-5)
== END 2020-10-02 12:57 | disposition home or self-care (01) ==
LOC: ED 08:55
PROVIDERS: Emergency Medicine
DX: G40.909 Epilepsy, unspecified, not intractable, without status epilepticus (principal); F17.200 Nicotine dependence, unspecified, uncomplicated; Z88.0 Allergy status to penicillin; Z79.899 Other long term (current) drug therapy; Z90.49 Acquired absence of other specified parts of digestive tract; Z98.890 Other specified postprocedural states

== ENCOUNTER 2020-10-03 08:47 | Emergency (ER) | payer OTHER ==
[2020-10-03 08:49] VITALS: BP 138/75
[2020-10-03 09:46] LABS: BILIRUBIN Negative (Negative); BLOOD Negative (Negative); CLARITY Clear (Clear); COLOR Yellow (Yellow); GLUCOSE Negative (Negative); KETONE Negative (Negative); LEUKO ESTERASE Negative (Negative); NITRITE Negative (Negative); PH 7.5 (4.5-8.0); SPECIFIC GRAVITY <= 1.005 (1.001-1.030); UROBILINOGEN 0.2 E.U./dl (0.0-1.0)
[2020-10-03 10:02] LABS: BASO % 0.7 % (0.0-1.0); EOS # 0.2 10*3/uL (0.0-0.4); EOS % 4.2 % (1.0-4.0); HEMATOCRIT 39.3 % (37.0-47.0); LYMPH # 1.4 10*3/uL (1.3-4.4); LYMPH % 24.1 % (27.0-41.0); MEAN CELL VOLUME 90.8 fl (81.0-99.0); MEAN CORPUSCULAR HGB 29.6 pg (27.0-31.0); MEAN CORPUSCULAR HGB CONC 32.6 g/dl (33.0-37.0); MONO # 0.8 10*3/uL (0.1-1.0); MONO % 13.1 % (3.0-9.0); NEUT # 3.3 10*3/uL (2.3-7.9); NEUT % 57.7 % (47.0-73.0); PLATELET COUNT AUTOMATED 250 10*3/uL (130-400); RED BLOOD COUNT 4.33 10*6/uL (4.10-5.10); RED CELL DISTRI WIDTH 13.2 % (0-14.5); WHITE BLOOD COUNT 5.7 10*3/uL (4.8-10.8)
[2020-10-03 10:05] LABS: BACTERIA 1+; MUCOUS TRACE
[2020-10-03 10:12] LABS: ACT PARTIAL THROMBO TIME 24.8 SECONDS (20.0-32.1)
[2020-10-03 10:24] LABS: ALBUMIN 3.3 gm/dl (3.1-4.5); ALKALINE PHOSPHATASE 129 U/L (45-117); BUN 7 mg/dl (7-24); CHLORIDE 101 mmol/L (98-107); CREATININE 0.54 mg/dL (0.55-1.02); LIPASE 179 U/L (73-393); PHENYTOIN (DILANTIN) 15.5 ug/ml (10-20); SGOT/AST 15 IU/L (3-35); SGPT/ALT 23 U/L (12-78); SODIUM 132 mmol/L (136-145); TOTAL PROTEIN 7.3 gm/dL (6.4-8.2)
[2020-10-03 10:26] LABS: TROPONIN I < 0.015 ng/ml (<0.045)
== END 2020-10-03 12:48 | disposition home or self-care (01) ==
LOC: ED 08:47
PROVIDERS: Emergency Medicine
DX: G40.909 Epilepsy, unspecified, not intractable, without status epilepticus (principal); Z90.49 Acquired absence of other specified parts of digestive tract; Z79.899 Other long term (current) drug therapy; Z88.0 Allergy status to penicillin

== ENCOUNTER 2021-01-10 11:51 | Inpatient (IN) | payer OTHER ==
[~2021-01-10] VITALS: Ht 162.5 cm; Wt 63.6 kg
[2021-01-10 11:55] VITALS: BP 154/73
[2021-01-10 12:41] LABS: BASO % 0.7 % (0.0-1.0); EOS # 0.2 10*3/uL (0.0-0.4); EOS % 2.4 % (1.0-4.0); HEMATOCRIT 36.3 % (37.0-47.0); LYMPH # 1.5 10*3/uL (1.3-4.4); LYMPH % 24.4 % (27.0-41.0); MEAN CELL VOLUME 87.5 fl (81.0-99.0); MEAN CORPUSCULAR HGB 29.9 pg (27.0-31.0); MEAN CORPUSCULAR HGB CONC 34.2 g/dl (33.0-37.0); MEAN PLATELET VOLUME 8.7 fl (9.6-12.3); MONO # 0.8 10*3/uL (0.1-1.0); MONO % 12.5 % (3.0-9.0); NEUT # 3.7 10*3/uL (2.3-7.9); NEUT % 59.7 % (47.0-73.0); PLATELET COUNT AUTOMATED 282 10*3/uL (130-400); RED BLOOD COUNT 4.15 10*6/uL (4.10-5.10); RED CELL DISTRI WIDTH 12.5 % (0-14.5); WHITE BLOOD COUNT 6.1 10*3/uL (4.8-10.8)
[2021-01-10 12:56] LABS: ALBUMIN 3.4 gm/dl (3.1-4.5); ALKALINE PHOSPHATASE 135 U/L (45-117); BUN 4 mg/dl (7-24); CHLORIDE 89 mmol/L (98-107); CREATININE 0.45 mg/dL (0.55-1.02); POTASSIUM 3.9 mmol/L (3.5-5.1); SGOT/AST 21 IU/L (3-35); SGPT/ALT 31 U/L (12-78); SODIUM 123 mmol/L (136-145); TOTAL PROTEIN 7.2 gm/dL (6.4-8.2)
[2021-01-10 13:08] LABS: PHENYTOIN (DILANTIN) 14.2 ug/ml (10-20)
[2021-01-10 13:12] VITALS: BP 148/68
[2021-01-10 16:10] VITALS: BP 162/63
[2021-01-10 18:40] VITALS: BP 132/66
[2021-01-10 20:30] VITALS: BP 100/63
[2021-01-10 20:41] LABS: BUN 5 mg/dl (7-24); CHLORIDE 97 mmol/L (98-107); CREATININE 0.44 mg/dL (0.55-1.02); POTASSIUM 3.5 mmol/L (3.5-5.1); SODIUM 130 mmol/L (136-145)
[2021-01-10] MEDS ORDERED: DILANTIN100 MG PO (20:51)
[2021-01-10] MEDS ORDERED: CYMBALTA60 MG PO (20:52)
[2021-01-10] MEDS ORDERED: TOPAMAX50 MG PO (20:54)
[2021-01-10] MEDS ORDERED: PROZAC40 M1 PO (20:55)
[2021-01-10] MEDS ORDERED: BUSPIRONE HCL10 MG PO (20:56)
[2021-01-10 22:59] LABS: BILIRUBIN Negative (Negative); BLOOD Negative (Negative); CLARITY Clear (Clear); COLOR Yellow (Yellow); GLUCOSE Negative (Negative); KETONE Negative (Negative); LEUKO ESTERASE Negative (Negative); NITRITE Negative (Negative); SPECIFIC GRAVITY <= 1.005 (1.001-1.030); UROBILINOGEN 0.2 E.U./dl (0.0-1.0)
[2021-01-10 23:20] LABS: BACTERIA TRACE
[2021-01-11] VITALS: BP 108/57
[2021-01-11 06:19] LABS: BUN 3 mg/dl (7-24); CHLORIDE 96 mmol/L (98-107); POTASSIUM 3.8 mmol/L (3.5-5.1); SODIUM 129 mmol/L (136-145)
[2021-01-11 06:24] LABS: EOS # 0.2 10*3/uL (0.0-0.4); EOS % 4.4 % (1.0-4.0); HEMATOCRIT 41.1 % (37.0-47.0); LYMPH # 1.4 10*3/uL (1.3-4.4); LYMPH % 36.7 % (27.0-41.0); MEAN CELL VOLUME 89.3 fl (81.0-99.0); MEAN CORPUSCULAR HGB 29.1 pg (27.0-31.0); MEAN CORPUSCULAR HGB CONC 32.6 g/dl (33.0-37.0); MEAN PLATELET VOLUME 9.3 fl (9.6-12.3); MONO # 0.6 10*3/uL (0.1-1.0); NEUT # 1.6 10*3/uL (2.3-7.9); NEUT % 41.6 % (47.0-73.0); PLATELET COUNT AUTOMATED 336 10*3/uL (130-400); RED CELL DISTRI WIDTH 12.6 % (0-14.5); WHITE BLOOD COUNT 3.9 10*3/uL (4.8-10.8)
[2021-01-11 06:30] LABS: CREATININE 0.55 mg/dL (0.55-1.02); FREE T4 0.63 ng/dl (0.76-1.46)
[2021-01-11 08:00] VITALS: BP 120/76
[2021-01-11 12:00] VITALS: BP 125/68
== END 2021-01-11 12:21 | disposition home or self-care (01) | DRG 351 ==
LOC: ED 11:51 → EDHOLD 13:18 → 5E 13:18 → EDHOLD 14:24 → 5E 15:10
PROVIDERS: Emergency Medicine; Student in an Organized Health Care Education/Training Program; ADMIT Family Medicine; ATTEND Family Medicine
DX: S93.402A Sprain of unspecified ligament of left ankle, initial encounter (principal); E87.1 Hypo-osmolality and hyponatremia; J44.9 Chronic obstructive pulmonary disease, unspecified; I10 Essential (primary) hypertension; E87.8 Other disorders of electrolyte and fluid balance, not elsewhere classified; F17.210 Nicotine dependence, cigarettes, uncomplicated; R65.10 Systemic inflammatory response syndrome (SIRS) of non-infectious origin without acute organ dysfunction; R26.2 Difficulty in walking, not elsewhere classified; G40.909 Epilepsy, unspecified, not intractable, without status epilepticus; Z88.0 Allergy status to penicillin; Z90.49 Acquired absence of other specified parts of digestive tract; Z98.49 Cataract extraction status, unspecified eye; W18.39XA Other fall on same level, initial encounter; Z86.73 Personal history of transient ischemic attack (TIA), and cerebral infarction without residual deficits; Z83.3 Family history of diabetes mellitus; Z71.6 Tobacco abuse counseling; Y93.89 Activity, other specified; Y92.098 Other place in other non-institutional residence as the place of occurrence of the external cause; Y99.8 Other external cause status

== ENCOUNTER 2021-01-15 12:36 | Inpatient (IN) | payer OTHER ==
[~2021-01-15] VITALS: Ht 170.1 cm; Wt 64.6 kg
[~2021-01-15 12:36] MED LIST changes: +BUSPIRONE HCL10 MG PO; +CYMBALTA60 MG PO; +PROZAC40 M1 PO; +TOPAMAX50 MG PO
[2021-01-15 12:38] VITALS: BP 125/57
[2021-01-15 15:13] LABS: BASO % 0.6 % (0.0-1.0); EOS # 0.1 10*3/uL (0.0-0.4); EOS % 2.8 % (1.0-4.0); HEMATOCRIT 35.3 % (37.0-47.0); LYMPH # 1.4 10*3/uL (1.3-4.4); LYMPH % 30.8 % (27.0-41.0); MEAN CELL VOLUME 86.9 fl (81.0-99.0); MEAN CORPUSCULAR HGB 29.8 pg (27.0-31.0); MEAN CORPUSCULAR HGB CONC 34.3 g/dl (33.0-37.0); MEAN PLATELET VOLUME 8.8 fl (9.6-12.3); MONO # 0.7 10*3/uL (0.1-1.0); MONO % 15.2 % (3.0-9.0); NEUT # 2.4 10*3/uL (2.3-7.9); NEUT % 50.4 % (47.0-73.0); PLATELET COUNT AUTOMATED 264 10*3/uL (130-400); RED BLOOD COUNT 4.06 10*6/uL (4.10-5.10); RED CELL DISTRI WIDTH 12.5 % (0-14.5); WHITE BLOOD COUNT 4.7 10*3/uL (4.8-10.8)
[2021-01-15 15:32] LABS: ALBUMIN 3.4 gm/dl (3.1-4.5); ALKALINE PHOSPHATASE 143 U/L (45-117); BUN 4 mg/dl (7-24); CHLORIDE 89 mmol/L (98-107); CREATININE 0.48 mg/dL (0.55-1.02); POTASSIUM 3.6 mmol/L (3.5-5.1); SGOT/AST 22 IU/L (3-35); SGPT/ALT 30 U/L (12-78); SODIUM 122 mmol/L (136-145); TOTAL PROTEIN 7.3 gm/dL (6.4-8.2)
[2021-01-15 17:24] VITALS: BP 115/64
[2021-01-15 18:45] VITALS: BP 128/82
[2021-01-15 19:47] VITALS: BP 124/66
[2021-01-15 20:20] VITALS: BP 136/81
[2021-01-16] VITALS: BP 128/79
[2021-01-16 04:23] VITALS: BP 130/80
[2021-01-16 06:36] LABS: BASO % 0.8 % (0.0-1.0); EOS # 0.1 10*3/uL (0.0-0.4); EOS % 3.5 % (1.0-4.0); HEMATOCRIT 35.3 % (37.0-47.0); LYMPH # 1.2 10*3/uL (1.3-4.4); LYMPH % 32.5 % (27.0-41.0); MEAN CELL VOLUME 87.4 fl (81.0-99.0); MEAN CORPUSCULAR HGB 29.5 pg (27.0-31.0); MEAN CORPUSCULAR HGB CONC 33.7 g/dl (33.0-37.0); MEAN PLATELET VOLUME 9.2 fl (9.6-12.3); MONO # 0.6 10*3/uL (0.1-1.0); MONO % 16.4 % (3.0-9.0); NEUT # 1.7 10*3/uL (2.3-7.9); NEUT % 46.3 % (47.0-73.0); PLATELET COUNT AUTOMATED 295 10*3/uL (130-400); RED BLOOD COUNT 4.04 10*6/uL (4.10-5.10); RED CELL DISTRI WIDTH 12.8 % (0-14.5); WHITE BLOOD COUNT 3.7 10*3/uL (4.8-10.8)
[2021-01-16 06:38] LABS: BILIRUBIN Negative (Negative); BLOOD Negative (Negative); CLARITY Clear (Clear); COLOR Yellow (Yellow); GLUCOSE Negative (Negative); KETONE Negative (Negative); LEUKO ESTERASE Trace (Negative); NITRITE Negative (Negative); PH 7.5 (4.5-8.0); SPECIFIC GRAVITY <= 1.005 (1.001-1.030); UROBILINOGEN 0.2 E.U./dl (0.0-1.0)
[2021-01-16 06:54] LABS: ALBUMIN 3.1 gm/dl (3.1-4.5); BUN 4 mg/dl (7-24); CHLORIDE 95 mmol/L (98-107); CREATININE 0.43 mg/dL (0.55-1.02); POTASSIUM 3.7 mmol/L (3.5-5.1); SGOT/AST 21 IU/L (3-35); SGPT/ALT 27 U/L (12-78); SODIUM 128 mmol/L (136-145)
[2021-01-16 07:08] LABS: ALKALINE PHOSPHATASE 127 U/L (45-117); PHENYTOIN (DILANTIN) 12.9 ug/ml (10-20); TOTAL PROTEIN 6.7 gm/dL (6.4-8.2)
[2021-01-16 07:37] LABS: BACTERIA 2+
[2021-01-16 08:38] VITALS: BP 130/80
[2021-01-16 12:00] VITALS: BP 121/63
[2021-01-16 16:00] VITALS: BP 114/69
[2021-01-16 20:00] VITALS: BP 115/70; BP 126/64
[2021-01-17] VITALS: BP 118/62
[2021-01-17 05:39] LABS: BUN 7 mg/dl (7-24); CHLORIDE 105 mmol/L (98-107); POTASSIUM 3.9 mmol/L (3.5-5.1); SODIUM 135 mmol/L (136-145)
[2021-01-17 06:10] LABS: BASO # 0.1 10*3/uL (0.0-0.1); BASO % 1.5 % (0.0-1.0); EOS # 0.1 10*3/uL (0.0-0.4); EOS % 4.2 % (1.0-4.0); HEMATOCRIT 35.5 % (37.0-47.0); LYMPH % 28.2 % (27.0-41.0); MEAN CELL VOLUME 89.4 fl (81.0-99.0); MEAN CORPUSCULAR HGB 29.5 pg (27.0-31.0); MEAN PLATELET VOLUME 9.7 fl (9.6-12.3); MONO # 0.5 10*3/uL (0.1-1.0); MONO % 14.5 % (3.0-9.0); NEUT # 1.7 10*3/uL (2.3-7.9); NEUT % 51.6 % (47.0-73.0); PLATELET COUNT AUTOMATED 280 10*3/uL (130-400); RED BLOOD COUNT 3.97 10*6/uL (4.10-5.10); RED CELL DISTRI WIDTH 12.6 % (0-14.5); WHITE BLOOD COUNT 3.4 10*3/uL (4.8-10.8)
[2021-01-17 08:00] VITALS: BP 132/70
[2021-01-17] MEDS ORDERED: DOXYCYCLINE MO100 M1 PO (10:55)
== END 2021-01-17 11:38 | disposition home health service (06) | DRG 383 ==
LOC: ED 12:36 → EDHOLD 16:14 → 4E 16:14 → EDHOLD 17:13 → 4E 19:32
PROVIDERS: Internal Medicine; Internal Medicine Nephrology; Physician Assistant; ADMIT Student in an Organized Health Care Education/Training Program; ATTEND Student in an Organized Health Care Education/Training Program
DX: L03.116 Cellulitis of left lower limb (principal); E87.1 Hypo-osmolality and hyponatremia; X19.XXXD Contact with other heat and hot substances, subsequent encounter; E87.8 Other disorders of electrolyte and fluid balance, not elsewhere classified; F17.210 Nicotine dependence, cigarettes, uncomplicated; J42 Unspecified chronic bronchitis; R63.1 Polydipsia; R74.8 Abnormal levels of other serum enzymes; I10 Essential (primary) hypertension; G40.909 Epilepsy, unspecified, not intractable, without status epilepticus; Y99.8 Other external cause status; Y93.89 Activity, other specified; S93.402D Sprain of unspecified ligament of left ankle, subsequent encounter; Y92.009 Unspecified place in unspecified non-institutional (private) residence as the place of occurrence of the external cause; Z71.6 Tobacco abuse counseling; Z86.73 Personal history of transient ischemic attack (TIA), and cerebral infarction without residual deficits; Z88.0 Allergy status to penicillin; Z79.899 Other long term (current) drug therapy; Z98.891 History of uterine scar from previous surgery; Z83.3 Family history of diabetes mellitus

== ENCOUNTER 2021-01-19 17:03 | Inpatient (IN) | payer OTHER ==
[~2021-01-19] VITALS: Ht 154.9 cm; Wt 115.9 kg
[~2021-01-19 17:03] MED LIST changes: +DOXYCYCLINE MO100 M1 PO
[2021-01-19 17:07] VITALS: BP 135/80
[2021-01-19 17:54] LABS: BASO % 0.3 % (0.0-1.0); EOS % 0.5 % (1.0-4.0); HEMATOCRIT 34.2 % (37.0-47.0); LYMPH # 0.6 10*3/uL (1.3-4.4); LYMPH % 7.7 % (27.0-41.0); MEAN CELL VOLUME 81.8 fl (81.0-99.0); MEAN CORPUSCULAR HGB 29.9 pg (27.0-31.0); MEAN CORPUSCULAR HGB CONC 36.5 g/dl (33.0-37.0); MEAN PLATELET VOLUME 8.8 fl (9.6-12.3); MONO # 0.9 10*3/uL (0.1-1.0); MONO % 12.1 % (3.0-9.0); NEUT # 5.9 10*3/uL (2.3-7.9); NEUT % 79.1 % (47.0-73.0); PLATELET COUNT AUTOMATED 260 10*3/uL (130-400); RED BLOOD COUNT 4.18 10*6/uL (4.10-5.10); RED CELL DISTRI WIDTH 12.1 % (0-14.5); WHITE BLOOD COUNT 7.5 10*3/uL (4.8-10.8)
[2021-01-19 18:08] LABS: BILIRUBIN Negative (Negative); BLOOD 1+ (Negative); CLARITY Cloudy (Clear); COLOR Yellow (Yellow); GLUCOSE Negative (Negative); KETONE Negative (Negative); LEUKO ESTERASE Negative (Negative); NITRITE Negative (Negative); PH 6.5 (4.5-8.0); SPECIFIC GRAVITY 1.015 (1.001-1.030); UROBILINOGEN 0.2 E.U./dl (0.0-1.0)
[2021-01-19 18:11] LABS: ALKALINE PHOSPHATASE 132 U/L (45-117); BUN 7 mg/dl (7-24); CHLORIDE 83 mmol/L (98-107); CREATININE 0.56 mg/dL (0.55-1.02); POTASSIUM 3.6 mmol/L (3.5-5.1); SGOT/AST 170 IU/L (3-35); SGPT/ALT 62 U/L (12-78); TOTAL PROTEIN 6.9 gm/dL (6.4-8.2)
[2021-01-19 18:15] LABS: SODIUM 116 mmol/L (136-145); TROPONIN I < 0.015 ng/ml (<0.045)
[2021-01-19 18:16] VITALS: BP 111/71
[2021-01-19 18:20] LABS: BACTERIA 3+
[2021-01-19 19:21] VITALS: BP 116/61
[2021-01-19 20:07] LABS: URINE AMPHETAMINES < 1000 (1000ng/ml); URINE BARBITURATES < 200 (200ng/ml); URINE BENZODIAZEPINES < 200 (200ng/ml); URINE CANNABINOIDS (THC) < 50 (50ng/ml); URINE COCAINE < 300 (300ng/ml); URINE METHADONE < 300 (300ng/ml); URINE OPIATES < 300 (300ng/ml)
[2021-01-19 20:17] LABS: URINE PHENCYCLIDINE < 25 (25ng/ml)
[2021-01-19 21:22] LABS: ABG BASE EXCESS 1.3 mmol/L (-2.0-2.0); ARTERIAL BLOOD GAS PH 7.48 (7.35-7.45); ARTERIAL BLOOD GAS PO2 68.3 (80-90)
[2021-01-19 21:34] VITALS: BP 109/68
[2021-01-19 21:49] VITALS: BP 121/73
[2021-01-20] VITALS: BP 113/72
[2021-01-20 02:44] LABS: BUN 7 mg/dl (7-24); CHLORIDE 83 mmol/L (98-107); CREATININE 0.51 mg/dL (0.55-1.02); POTASSIUM 3.2 mmol/L (3.5-5.1)
[2021-01-20 03:14] LABS: SODIUM 117 mmol/L (136-145)
[2021-01-20 04:40] LABS: BASO % 0.4 % (0.0-1.0); EOS # 0.1 10*3/uL (0.0-0.4); EOS % 1.5 % (1.0-4.0); HEMATOCRIT 30.2 % (37.0-47.0); LYMPH # 0.9 10*3/uL (1.3-4.4); LYMPH % 16.8 % (27.0-41.0); MEAN CELL VOLUME 84.1 fl (81.0-99.0); MEAN CORPUSCULAR HGB 29.8 pg (27.0-31.0); MEAN CORPUSCULAR HGB CONC 35.4 g/dl (33.0-37.0); MONO # 0.9 10*3/uL (0.1-1.0); MONO % 16.6 % (3.0-9.0); NEUT # 3.5 10*3/uL (2.3-7.9); NEUT % 64.3 % (47.0-73.0); PLATELET COUNT AUTOMATED 220 10*3/uL (130-400); RED BLOOD COUNT 3.59 10*6/uL (4.10-5.10); RED CELL DISTRI WIDTH 12.4 % (0-14.5); WHITE BLOOD COUNT 5.4 10*3/uL (4.8-10.8)
[2021-01-20 05:24] LABS: ALBUMIN 2.4 gm/dl (3.1-4.5); ALKALINE PHOSPHATASE 109 U/L (45-117); BUN 7 mg/dl (7-24); CHLORIDE 85 mmol/L (98-107); FREE T4 0.85 ng/dl (0.76-1.46); SGOT/AST 108 IU/L (3-35); SGPT/ALT 47 U/L (12-78); TOTAL PROTEIN 5.7 gm/dL (6.4-8.2)
[2021-01-20 05:37] LABS: SODIUM 119 mmol/L (136-145)
[2021-01-20 06:36] LABS: VITAMIN D, 25-HYDROXY 34.7 ng/mL (30-100)
[2021-01-20 08:00] VITALS: BP 136/70; BP 147/89
[2021-01-20 12:00] VITALS: BP 111/76
[2021-01-20 16:00] VITALS: BP 112/63
[2021-01-20 16:55] LABS: ALBUMIN 2.6 gm/dl (3.1-4.5); BUN 7 mg/dl (7-24); CHLORIDE 91 mmol/L (98-107); CREATININE 0.49 mg/dL (0.55-1.02); POTASSIUM 3.5 mmol/L (3.5-5.1); SODIUM 125 mmol/L (136-145)
[2021-01-20 20:00] VITALS: BP 125/63
[2021-01-21] VITALS: BP 102/65
[2021-01-21 05:53] LABS: BUN 4 mg/dl (7-24); CHLORIDE 96 mmol/L (98-107); CREATININE 0.38 mg/dL (0.55-1.02); POTASSIUM 3.4 mmol/L (3.5-5.1); SODIUM 129 mmol/L (136-145)
[2021-01-21 06:03] LABS: BASO % 0.4 % (0.0-1.0); EOS # 0.1 10*3/uL (0.0-0.4); EOS % 2.3 % (1.0-4.0); HEMATOCRIT 30.1 % (37.0-47.0); LYMPH # 1.1 10*3/uL (1.3-4.4); MEAN CELL VOLUME 85.3 fl (81.0-99.0); MEAN CORPUSCULAR HGB 29.5 pg (27.0-31.0); MEAN CORPUSCULAR HGB CONC 34.6 g/dl (33.0-37.0); MEAN PLATELET VOLUME 9.7 fl (9.6-12.3); MONO # 0.9 10*3/uL (0.1-1.0); MONO % 19.3 % (3.0-9.0); NEUT # 2.7 10*3/uL (2.3-7.9); NEUT % 55.8 % (47.0-73.0); PLATELET COUNT AUTOMATED 241 10*3/uL (130-400); RED BLOOD COUNT 3.53 10*6/uL (4.10-5.10); RED CELL DISTRI WIDTH 12.5 % (0-14.5); WHITE BLOOD COUNT 4.8 10*3/uL (4.8-10.8)
[2021-01-21 06:06] LABS: PHENYTOIN (DILANTIN) 1.6 ug/ml (10-20)
[2021-01-21 08:00] VITALS: BP 124/72
[2021-01-21 12:00] VITALS: BP 126/78
[2021-01-21 16:00] VITALS: BP 113/71
[2021-01-21 20:00] VITALS: BP 126/79
[2021-01-22] VITALS: BP 120/70
[2021-01-22 06:11] LABS: BASO # 0.1 10*3/uL (0.0-0.1); BASO % 1.1 % (0.0-1.0); EOS # 0.1 10*3/uL (0.0-0.4); HEMATOCRIT 30.8 % (37.0-47.0); LYMPH % 20.5 % (27.0-41.0); MEAN CELL VOLUME 87.7 fl (81.0-99.0); MEAN CORPUSCULAR HGB 29.9 pg (27.0-31.0); MEAN CORPUSCULAR HGB CONC 34.1 g/dl (33.0-37.0); MEAN PLATELET VOLUME 9.7 fl (9.6-12.3); MONO # 0.9 10*3/uL (0.1-1.0); MONO % 18.8 % (3.0-9.0); NEUT # 2.6 10*3/uL (2.3-7.9); NEUT % 56.4 % (47.0-73.0); PLATELET COUNT AUTOMATED 263 10*3/uL (130-400); RED BLOOD COUNT 3.51 10*6/uL (4.10-5.10); RED CELL DISTRI WIDTH 12.6 % (0-14.5); WHITE BLOOD COUNT 4.6 10*3/uL (4.8-10.8)
[2021-01-22 06:14] LABS: ALBUMIN 2.6 gm/dl (3.1-4.5); ALKALINE PHOSPHATASE 127 U/L (45-117); BUN 6 mg/dl (7-24); CHLORIDE 99 mmol/L (98-107); CREATININE 0.35 mg/dL (0.55-1.02); POTASSIUM 4.1 mmol/L (3.5-5.1); SGOT/AST 63 IU/L (3-35); SGPT/ALT 50 U/L (12-78); SODIUM 129 mmol/L (136-145); TOTAL PROTEIN 6.1 gm/dL (6.4-8.2)
[2021-01-22 08:00] VITALS: BP 138/73
[2021-01-22 12:00] VITALS: BP 136/73
[2021-01-22 16:00] VITALS: BP 126/65
[2021-01-22 20:00] VITALS: BP 137/78
[2021-01-23] VITALS: BP 151/71
[2021-01-23 06:42] LABS: EOS # 0.2 10*3/uL (0.0-0.4); EOS % 4.9 % (1.0-4.0); HEMATOCRIT 34.5 % (37.0-47.0); LYMPH # 1.1 10*3/uL (1.3-4.4); LYMPH % 27.2 % (27.0-41.0); MEAN CELL VOLUME 86.9 fl (81.0-99.0); MEAN CORPUSCULAR HGB 29.2 pg (27.0-31.0); MEAN CORPUSCULAR HGB CONC 33.6 g/dl (33.0-37.0); MEAN PLATELET VOLUME 8.9 fl (9.6-12.3); MONO # 0.7 10*3/uL (0.1-1.0); MONO % 18.1 % (3.0-9.0); NEUT % 48.6 % (47.0-73.0); PLATELET COUNT AUTOMATED 322 10*3/uL (130-400); RED BLOOD COUNT 3.97 10*6/uL (4.10-5.10); RED CELL DISTRI WIDTH 12.4 % (0-14.5); WHITE BLOOD COUNT 4.1 10*3/uL (4.8-10.8)
[2021-01-23 06:58] LABS: ALBUMIN 3.1 gm/dl (3.1-4.5); BUN 6 mg/dl (7-24); CHLORIDE 97 mmol/L (98-107); POTASSIUM 4.3 mmol/L (3.5-5.1); SODIUM 128 mmol/L (136-145)
[2021-01-23 07:22] LABS: ALKALINE PHOSPHATASE 143 U/L (45-117); CREATININE 0.43 mg/dL (0.55-1.02); PHENYTOIN (DILANTIN) 3.3 ug/ml (10-20); SGOT/AST 67 IU/L (3-35); SGPT/ALT 63 U/L (12-78); TOTAL PROTEIN 7.2 gm/dL (6.4-8.2)
[2021-01-23 08:00] VITALS: BP 156/83
[2021-01-23 12:00] VITALS: BP 149/80
[2021-01-23 14:29] LABS: BILIRUBIN Negative (Negative); BLOOD Negative (Negative); CLARITY Clear (Clear); COLOR Yellow (Yellow); GLUCOSE Negative (Negative); KETONE Negative (Negative); LEUKO ESTERASE Negative (Negative); NITRITE Negative (Negative); SPECIFIC GRAVITY 1.015 (1.001-1.030); UROBILINOGEN 0.2 E.U./dl (0.0-1.0)
[2021-01-23 14:37] LABS: RBC 0-2 rbc/hpf (0-2); WBC 0-2 wbc/hpf (0-5)
[2021-01-23 16:00] VITALS: BP 103/52
[2021-01-23 20:00] VITALS: BP 118/64
[2021-01-24] VITALS: BP 115/64
[2021-01-24 06:08] LABS: BASO # 0.1 10*3/uL (0.0-0.1); BASO % 1.2 % (0.0-1.0); EOS # 0.2 10*3/uL (0.0-0.4); EOS % 5.1 % (1.0-4.0); HEMATOCRIT 35.7 % (37.0-47.0); LYMPH # 1.2 10*3/uL (1.3-4.4); LYMPH % 28.3 % (27.0-41.0); MEAN CELL VOLUME 89.9 fl (81.0-99.0); MEAN CORPUSCULAR HGB 29.5 pg (27.0-31.0); MEAN CORPUSCULAR HGB CONC 32.8 g/dl (33.0-37.0); MEAN PLATELET VOLUME 9.3 fl (9.6-12.3); MONO # 0.8 10*3/uL (0.1-1.0); MONO % 19.1 % (3.0-9.0); NEUT # 1.9 10*3/uL (2.3-7.9); NEUT % 45.8 % (47.0-73.0); PLATELET COUNT AUTOMATED 353 10*3/uL (130-400); RED BLOOD COUNT 3.97 10*6/uL (4.10-5.10); RED CELL DISTRI WIDTH 12.7 % (0-14.5); WHITE BLOOD COUNT 4.1 10*3/uL (4.8-10.8)
[2021-01-24 06:22] LABS: BUN 9 mg/dl (7-24); CHLORIDE 98 mmol/L (98-107); CREATININE 0.41 mg/dL (0.55-1.02); SODIUM 130 mmol/L (136-145)
[2021-01-24 08:00] VITALS: BP 127/76
[2021-01-24 12:00] VITALS: BP 128/80
[2021-01-24 16:00] VITALS: BP 119/68
[2021-01-24 20:00] VITALS: BP 105/63
[2021-01-25] VITALS: BP 106/64
[2021-01-25 07:15] LABS: BUN 14 mg/dl (7-24); CHLORIDE 98 mmol/L (98-107); POTASSIUM 4.4 mmol/L (3.5-5.1); SODIUM 130 mmol/L (136-145)
[2021-01-25 07:16] LABS: CREATININE 0.47 mg/dL (0.55-1.02)
[2021-01-25 08:00] VITALS: BP 117/71
[2021-01-25 12:00] VITALS: BP 127/63
== END 2021-01-25 15:48 | disposition home health service (06) | DRG 426 ==
LOC: ED 17:03 → 4E 19:45 → EDHOLD 19:45 → 4E 22:12
PROVIDERS: Hospitalist; Internal Medicine; Internal Medicine Nephrology; Physician Assistant; Student in an Organized Health Care Education/Training Program; ADMIT Family Medicine; ATTEND Family Medicine
DX: E22.2 Syndrome of inappropriate secretion of antidiuretic hormone (principal); S80.02XA Contusion of left knee, initial encounter; G93.41 Metabolic encephalopathy; R63.1 Polydipsia; J32.0 Chronic maxillary sinusitis; G40.909 Epilepsy, unspecified, not intractable, without status epilepticus; I10 Essential (primary) hypertension; J44.9 Chronic obstructive pulmonary disease, unspecified; E43 Unspecified severe protein-calorie malnutrition; W19.XXXA Unspecified fall, initial encounter; Z20.822 Contact with and (suspected) exposure to COVID-19; R74.01 Elevation of levels of liver transaminase levels; E87.8 Other disorders of electrolyte and fluid balance, not elsewhere classified; R41.9 Unspecified symptoms and signs involving cognitive functions and awareness; M25.562 Pain in left knee; F29 Unspecified psychosis not due to a substance or known physiological condition; D64.9 Anemia, unspecified; E87.3 Alkalosis; E87.6 Hypokalemia; F54 Psychological and behavioral factors associated with disorders or diseases classified elsewhere; J32.9 Chronic sinusitis, unspecified; E83.39 Other disorders of phosphorus metabolism; E11.65 Type 2 diabetes mellitus with hyperglycemia; F32.9 Major depressive disorder, single episode, unspecified; F17.210 Nicotine dependence, cigarettes, uncomplicated; Y93.9 Activity, unspecified; Y92.009 Unspecified place in unspecified non-institutional (private) residence as the place of occurrence of the external cause; Y99.8 Other external cause status; Z68.28 Body mass index [BMI] 28.0-28.9, adult; Z88.0 Allergy status to penicillin; Z98.891 History of uterine scar from previous surgery

== ENCOUNTER 2021-02-05 13:48 | Inpatient (IN) | payer OTHER ==
[~2021-02-05] VITALS: Ht 154.9 cm; Wt 68.0 kg
[2021-02-05 13:51] VITALS: BP 108/64
[2021-02-05 15:18] LABS: BASO # 0.1 10*3/uL (0.0-0.1); EOS # 0.2 10*3/uL (0.0-0.4); EOS % 3.7 % (1.0-4.0); HEMATOCRIT 35.1 % (37.0-47.0); LYMPH # 1.8 10*3/uL (1.3-4.4); LYMPH % 29.5 % (27.0-41.0); MEAN CELL VOLUME 88.4 fl (81.0-99.0); MEAN CORPUSCULAR HGB CONC 32.8 g/dl (33.0-37.0); MEAN PLATELET VOLUME 8.7 fl (9.6-12.3); MONO # 0.8 10*3/uL (0.1-1.0); MONO % 12.6 % (3.0-9.0); NEUT # 3.2 10*3/uL (2.3-7.9); PLATELET COUNT AUTOMATED 353 10*3/uL (130-400); RED BLOOD COUNT 3.97 10*6/uL (4.10-5.10); RED CELL DISTRI WIDTH 13.2 % (0-14.5); WHITE BLOOD COUNT 5.9 10*3/uL (4.8-10.8)
[2021-02-05 15:45] LABS: ALBUMIN 3.4 gm/dl (3.1-4.5); ALKALINE PHOSPHATASE 163 U/L (45-117); BUN 8 mg/dl (7-24); CHLORIDE 95 mmol/L (98-107); CREATININE 0.42 mg/dL (0.55-1.02); POTASSIUM 4.2 mmol/L (3.5-5.1); SGOT/AST 23 IU/L (3-35); SGPT/ALT 35 U/L (12-78); SODIUM 128 mmol/L (136-145); TOTAL PROTEIN 7.3 gm/dL (6.4-8.2)
[2021-02-06] MEDS ORDERED: BUSPIRONE HCL10 MG PO (11:57)
[2021-02-06] MEDS ORDERED: FLUOXETINE HCL40 MG PO (11:58)
== END 2021-02-06 01:36 | disposition left against medical advice (07) | DRG 383 ==
LOC: ED 13:48 → EDHOLD 16:40
PROVIDERS: Physician Assistant; ADMIT Internal Medicine; ATTEND Internal Medicine
DX: L03.116 Cellulitis of left lower limb (principal); E87.1 Hypo-osmolality and hyponatremia; Z20.822 Contact with and (suspected) exposure to COVID-19; E11.65 Type 2 diabetes mellitus with hyperglycemia; J44.9 Chronic obstructive pulmonary disease, unspecified; D64.9 Anemia, unspecified; E87.8 Other disorders of electrolyte and fluid balance, not elsewhere classified; F17.210 Nicotine dependence, cigarettes, uncomplicated; R63.1 Polydipsia; G40.909 Epilepsy, unspecified, not intractable, without status epilepticus; R07.81 Pleurodynia; Z53.29 Procedure and treatment not carried out because of patient's decision for other reasons; F54 Psychological and behavioral factors associated with disorders or diseases classified elsewhere; Z86.73 Personal history of transient ischemic attack (TIA), and cerebral infarction without residual deficits; Z88.0 Allergy status to penicillin; Z83.3 Family history of diabetes mellitus; Z71.6 Tobacco abuse counseling; Z90.49 Acquired absence of other specified parts of digestive tract

== ENCOUNTER 2021-02-06 11:48 | Emergency (ER) | payer OTHER ==
[~2021-02-06] VITALS: Ht 170.1 cm
[2021-02-06] MEDS ORDERED: BUSPIRONE HCL10 MG PO (11:57)
[2021-02-06] MEDS ORDERED: FLUOXETINE HCL40 MG PO (11:58)
[2021-02-06 12:20] LABS: BASO % 0.4 % (0.0-1.0); EOS # 0.1 10*3/uL (0.0-0.4); EOS % 1.3 % (1.0-4.0); HEMATOCRIT 33.2 % (37.0-47.0); LYMPH % 13.8 % (27.0-41.0); MEAN CORPUSCULAR HGB 29.3 pg (27.0-31.0); MEAN CORPUSCULAR HGB CONC 32.2 g/dl (33.0-37.0); MEAN PLATELET VOLUME 8.9 fl (9.6-12.3); MONO # 0.7 10*3/uL (0.1-1.0); MONO % 9.7 % (3.0-9.0); NEUT # 5.6 10*3/uL (2.3-7.9); NEUT % 74.1 % (47.0-73.0); PLATELET COUNT AUTOMATED 315 10*3/uL (130-400); RED BLOOD COUNT 3.65 10*6/uL (4.10-5.10); RED CELL DISTRI WIDTH 13.2 % (0-14.5); WHITE BLOOD COUNT 7.6 10*3/uL (4.8-10.8)
[2021-02-06 12:34] LABS: BUN 13 mg/dl (7-24); CHLORIDE 100 mmol/L (98-107); CREATININE 0.46 mg/dL (0.55-1.02); POTASSIUM 4.1 mmol/L (3.5-5.1); SODIUM 137 mmol/L (136-145)
[2021-02-06 15:53] VITALS: BP 122/76
== END 2021-02-06 18:00 | disposition short-term general hospital (02) ==
LOC: ED 11:48
PROVIDERS: Emergency Medicine
DX: M25.551 Pain in right hip (principal); I10 Essential (primary) hypertension; J44.9 Chronic obstructive pulmonary disease, unspecified; G43.909 Migraine, unspecified, not intractable, without status migrainosus; F17.210 Nicotine dependence, cigarettes, uncomplicated; Z88.0 Allergy status to penicillin; Z79.899 Other long term (current) drug therapy; W18.39XA Other fall on same level, initial encounter; Y93.89 Activity, other specified; Y92.89 Other specified places as the place of occurrence of the external cause; Y99.8 Other external cause status

== ENCOUNTER → 2021-10-03 | Outpatient (CLI) | payer MEDICAID ==
[~2021-10-03] MED LIST changes: +FLUOXETINE HCL40 MG PO
== END | disposition home or self-care (01) ==
LOC: ORTHO 01:17
PROVIDERS: ATTEND Orthopaedic Surgery
DX: S52.511D Displaced fracture of right radial styloid process, subsequent encounter for closed fracture with routine healing (principal); X58.XXXD Exposure to other specified factors, subsequent encounter

== ENCOUNTER → 2021-10-26 | Outpatient (CLI) | payer MEDICAID | END | disposition home or self-care (01) | LOC: RAD 10:26 | PROVIDERS: ATTEND Orthopaedic Surgery | DX: M81.0 Age-related osteoporosis without current pathological fracture (principal) ==

== ENCOUNTER → 2021-11-28 | Outpatient (CLI) | payer MEDICAID | LOC: RAD/SH 07:44 | PROVIDERS: ATTEND Internal Medicine | DX: R13.10 Dysphagia, unspecified (principal); M25.78 Osteophyte, vertebrae ==

== ENCOUNTER 2022-02-18 11:16 | Emergency (ER) | payer MEDICAID ==
[2022-02-18 11:47] LABS: BASO # 0.1 10*3/uL (0.0-0.1); BASO % 1.5 % (0.0-1.0); EOS # 0.5 10*3/uL (0.0-0.4); EOS % 11.1 % (1.0-4.0); HEMATOCRIT 39.8 % (37.0-47.0); LYMPH # 1.5 10*3/uL (1.3-4.4); LYMPH % 31.3 % (27.0-41.0); MEAN CELL VOLUME 93.2 fl (81.0-99.0); MEAN CORPUSCULAR HGB 30.9 pg (27.0-31.0); MEAN CORPUSCULAR HGB CONC 33.2 g/dl (33.0-37.0); MONO # 0.6 10*3/uL (0.1-1.0); NEUT # 2.1 10*3/uL (2.3-7.9); NEUT % 43.9 % (47.0-73.0); PLATELET COUNT AUTOMATED 213 10*3/uL (130-400); RED BLOOD COUNT 4.27 10*6/uL (4.10-5.10); WHITE BLOOD COUNT 4.8 10*3/uL (4.8-10.8)
[2022-02-18 12:02] LABS: ACT PARTIAL THROMBO TIME 24.5 SECONDS (20.0-32.1)
[2022-02-18 12:15] LABS: ALKALINE PHOSPHATASE 146 U/L (45-117); BUN 10 mg/dl (7-24); CHLORIDE 99 mmol/L (98-107); CREATININE 0.49 mg/dL (0.55-1.02); POTASSIUM 4.5 mmol/L (3.5-5.1); SGOT/AST 26 IU/L (3-35); SGPT/ALT 48 U/L (12-78); SODIUM 133 mmol/L (136-145); TOTAL PROTEIN 7.6 gm/dL (6.4-8.2)
[2022-02-18] MEDS ORDERED: ACETAMINOPHEN500 M4 PO (12:19)
[2022-02-18] MEDS ORDERED: ADV 100/50 INH (12:20)
[2022-02-18] MEDS ORDERED: VITAMIN C500 M8 PO (12:21)
[2022-02-18] MEDS ORDERED: VENTOLIN 02.5 MG/3 M INH (12:21)
[2022-02-18] MEDS ORDERED: DEBROX15 ML OT (12:23)
[2022-02-18] MEDS ORDERED: VITAMIN D350 MC2 PO (12:23)
[2022-02-18] MEDS ORDERED: CYCLOBENZAPRINE10 MG PO (12:24)
[2022-02-18] MEDS ORDERED: DICLOFENAC SOD100 G1 T (12:26)
[2022-02-18] MEDS ORDERED: FLUOXETINE HCL40 MG PO (12:27)
[2022-02-18] MEDS ORDERED: FOSAMAX70 M1 PO (12:28)
[2022-02-18] MEDS ORDERED: LOPERAMIDE HCL2 MG PO (12:28)
[2022-02-18] MEDS ORDERED: ONDANSETRON4 MG SL (12:29)
[2022-02-18] MEDS ORDERED: MELATONIN 5 MG1 EAC1 PO (12:29)
[2022-02-18 14:31] VITALS: BP 134/65
== END 2022-02-18 15:21 ==
LOC: ED 11:16
PROVIDERS: Emergency Medicine
DX: R07.9 Chest pain, unspecified (principal); J44.9 Chronic obstructive pulmonary disease, unspecified; I10 Essential (primary) hypertension; G40.909 Epilepsy, unspecified, not intractable, without status epilepticus; Z88.0 Allergy status to penicillin; Z79.899 Other long term (current) drug therapy; Z98.890 Other specified postprocedural states; Z87.891 Personal history of nicotine dependence

== ENCOUNTER → 2022-04-01 | Outpatient (CLI) | payer MEDICAID ==
[~2022-04-01] MED LIST changes: +ACETAMINOPHEN500 M4 PO; +ADV 100/50 INH; +CYCLOBENZAPRINE10 MG PO; +DEBROX15 ML OT; +DICLOFENAC SOD100 G1 T; +FOSAMAX70 M1 PO; +LOPERAMIDE HCL2 MG PO; +MELATONIN 5 MG1 EAC1 PO; +ONDANSETRON4 MG SL; +VENTOLIN 02.5 MG/3 M INH; +VITAMIN C500 M8 PO; +VITAMIN D350 MC2 PO
== END | disposition home or self-care (01) ==
LOC: CT 08:00
PROVIDERS: ATTEND Otolaryngology
DX: H92.03 Otalgia, bilateral (principal); J43.2 Centrilobular emphysema; M50.30 Other cervical disc degeneration, unspecified cervical region

== ENCOUNTER → 2022-04-25 | Outpatient (CLI) | payer MEDICAID | END | disposition home or self-care (01) | LOC: MAMMO 11:00 | PROVIDERS: ATTEND Internal Medicine | DX: Z12.31 Encounter for screening mammogram for malignant neoplasm of breast (principal) ==

== ENCOUNTER 2022-06-13 18:02 | Emergency (ER) | payer MEDICAID ==
[~2022-06-13 18:02] MED LIST changes: +EAR DROPS 15 ML15 ML OT; +EXTENDED PHENY200 MG PO; +FLEET ENEMA 13133 ML R; +HALOPERIDOL5 MG PO; +LAXATIVE SUPPOS10 MG R; +MILK OF MA400 MG/51 PO; +MIRALAX119 GM PO; +ONDANSETRON HYDR4 M1 PO; +SENNA8.6 MG PO; +SODIUM CHLORI1000 MG PO; +TRAMADOL HCL50 MG PO; +ZINC-22050 MG PO
[2022-06-13 21:37] VITALS: BP 121/53
[2022-06-14] MEDS ORDERED: TYLENOL EXTRA500 MG PO (12:11)
[2022-06-14] MEDS ORDERED: EXTENDED PHENY300 MG PO (12:17)
[2022-06-19] MEDS ORDERED: ENOXAPARIN40 MG/0.2 SC (14:04)
== END 2022-06-13 21:07 | disposition home or self-care (01) ==
LOC: ED 18:02
DX: S62.011A Displaced fracture of distal pole of navicular [scaphoid] bone of right wrist, initial encounter for closed fracture (principal); Z88.0 Allergy status to penicillin; Z91.018 Allergy to other foods; Z79.899 Other long term (current) drug therapy; Z98.890 Other specified postprocedural states; Z90.49 Acquired absence of other specified parts of digestive tract; F17.210 Nicotine dependence, cigarettes, uncomplicated; W18.39XA Other fall on same level, initial encounter; Y93.89 Activity, other specified; Y92.89 Other specified places as the place of occurrence of the external cause; Y99.8 Other external cause status

== ENCOUNTER → 2022-09-03 | Day surgery (SDC) | payer OTHER ==
[~2022-09-03] VITALS: Wt 78.0 kg
[~2022-09-03] MED LIST changes: +ENOXAPARIN40 MG/0.2 SC; +EXTENDED PHENY300 MG PO; +HYDROCODONE-AC1 EAC1 PO; +TYLENOL EXTRA500 MG PO
[2022-09-03 07:30] VITALS: BP 113/74
[2022-09-03 10:22] VITALS: BP 133/83
[2022-09-03 10:37] VITALS: BP 113/86
[2022-09-03 10:52] VITALS: BP 138/81
[2022-09-03 11:07] VITALS: BP 135/84
[2022-09-03 11:19] VITALS: BP 146/86
== END | disposition home or self-care (01) ==
LOC: SDC 08-29 08:00
PROVIDERS: ATTEND Orthopaedic Surgery
DX: T84.89XA Other specified complication of internal orthopedic prosthetic devices, implants and grafts, initial encounter (principal); G56.03 Carpal tunnel syndrome, bilateral upper limbs; F41.9 Anxiety disorder, unspecified; J44.9 Chronic obstructive pulmonary disease, unspecified; F43.10 Post-traumatic stress disorder, unspecified; M19.131 Post-traumatic osteoarthritis, right wrist; Z86.73 Personal history of transient ischemic attack (TIA), and cerebral infarction without residual deficits; Y82.8 Other medical devices associated with adverse incidents

== ENCOUNTER → 2023-05-09 | Outpatient (CLI) | payer MEDICAID ==
[~2023-05-09] MED LIST changes: +BISACODYL10 MG R; +DEPAKOTE SPRIN125 MG PO; +FLEET ENEMA EX230 M1 R; +Ipratropium Brom3 ML INH; +LEVOFLOXACIN500 MG PO; +MILK OF MA400 MG/53 PO; +MUCUS RELIEF600 MG PO; +PREDNISONE10 MG PO; +REMERON15 M2 PO; +VITAMIN D325 MC1 PO
== END | disposition home or self-care (01) ==
LOC: ORTHO 02:16
PROVIDERS: ATTEND Orthopaedic Surgery
DX: S52.501A Unspecified fracture of the lower end of right radius, initial encounter for closed fracture (principal); M19.031 Primary osteoarthritis, right wrist; X58.XXXA Exposure to other specified factors, initial encounter; Y93.89 Activity, other specified; Y92.89 Other specified places as the place of occurrence of the external cause; Y99.8 Other external cause status

== ENCOUNTER 2023-07-05 21:02 | Emergency (ER) | payer MEDICAID ==
[~2023-07-05] VITALS: Ht 162.5 cm; Wt 90.7 kg
[2023-07-05] MEDS ORDERED: methylPREDNISolone sod succ 125 MG VIAL IM ONE (21:15)
[2023-07-05] MEDS ORDERED: Albuterol Sulf/Ipratropium 3 ML VIAL NEB ONE (21:15)
[2023-07-05 21:47] LABS: BASO % 0.4 % (0.0-1.0); EOS # 0.2 10*3/uL (0.0-0.4); HEMATOCRIT 38.5 % (37.0-47.0); LYMPH # 0.9 10*3/uL (1.3-4.4); LYMPH % 9.5 % (27.0-41.0); MEAN CELL VOLUME 92.5 fl (81.0-99.0); MEAN CORPUSCULAR HGB 29.6 pg (27.0-31.0); MEAN CORPUSCULAR HGB CONC 31.9 g/dl (33.0-37.0); MEAN PLATELET VOLUME 10.9 fl (9.6-12.3); MONO # 1.3 10*3/uL (0.1-1.0); MONO % 13.5 % (3.0-9.0); NEUT % 74.4 % (47.0-73.0); PLATELET COUNT AUTOMATED 171 10*3/uL (130-400); RED BLOOD COUNT 4.16 10*6/uL (4.10-5.10); RED CELL DISTRI WIDTH 12.8 % (0-14.5); WHITE BLOOD COUNT 9.5 10*3/uL (4.8-10.8)
[2023-07-05 22:07] LABS: BUN 5 mg/dl (9-23); CHLORIDE 98 mmol/L (98-107); POTASSIUM 3.6 mmol/L (3.4-5.1)
[2023-07-05] MEDS ORDERED: PREDNISONE10 MG PO (22:58)
[2023-07-05] MEDS ORDERED: AVPAK AZITHROM250 M1 PO (22:58)
[2023-07-05] MEDS ORDERED: AZITHROMYCIN 250 MG TAB PO ONE (23:00)
[2023-07-05 23:04] VITALS: BP 120/58
== END 2023-07-05 23:36 ==
LOC: ED 21:02
PROVIDERS: Physician Assistant Medical
DX: J44.1 Chronic obstructive pulmonary disease with (acute) exacerbation (principal); J18.9 Pneumonia, unspecified organism; F17.210 Nicotine dependence, cigarettes, uncomplicated; Z88.0 Allergy status to penicillin; Z91.018 Allergy to other foods; Z88.6 Allergy status to analgesic agent; Z88.8 Allergy status to other drugs, medicaments and biological substances; Z79.2 Long term (current) use of antibiotics; Z79.899 Other long term (current) drug therapy; Z98.890 Other specified postprocedural states; Z96.641 Presence of right artificial hip joint; Z90.49 Acquired absence of other specified parts of digestive tract

== ENCOUNTER 2023-11-06 06:47 | Emergency (ER) | payer MEDICAID ==
[~2023-11-06] VITALS: Ht 172.7 cm; Wt 80.3 kg
[~2023-11-06 06:47] MED LIST changes: +AVPAK AZITHROM250 M1 PO; +DOXYCYCLINE HY100 M3 PO; +DOXYCYCLINE MO100 MG PO
[2023-11-06 06:52] VITALS: BP 123/83
[2023-11-06] MEDS ORDERED: Albuterol Sulf/Ipratropium 3 ML VIAL NEB ONE (07:10)
== END 2023-11-06 07:25 ==
LOC: ED 06:47
DX: J44.1 Chronic obstructive pulmonary disease with (acute) exacerbation (principal); F41.9 Anxiety disorder, unspecified; F17.200 Nicotine dependence, unspecified, uncomplicated; Z88.0 Allergy status to penicillin; Z88.6 Allergy status to analgesic agent; Z91.018 Allergy to other foods; Z98.890 Other specified postprocedural states; Z90.49 Acquired absence of other specified parts of digestive tract; W19.XXXA Unspecified fall, initial encounter

== ENCOUNTER 2024-01-07 22:05 | Inpatient (IN) | payer MEDICAID ==
[~2024-01-07] VITALS: Ht 170.1 cm; Wt 70.3 kg
[~2024-01-07 22:05] MED LIST changes: +Depakote500 MG PO; +K-TAB20 MEQ PO; +LIPITOR20 MG PO
[2024-01-07 22:21] VITALS: BP 129/71
[2024-01-08] MEDS ORDERED: Albuterol Sulfate 2.5 MG/3 ML VIAL NEB PRN (00:35)
[2024-01-08] MEDS ORDERED: BISACODYL 10 MG SUPP R PRN (00:40)
[2024-01-08] MEDS ORDERED: Magnesium Hydroxide 30 ML UDC PO PRN ×2 (00:40→02:05)
[2024-01-08] MEDS ORDERED: LORazepam 1 MG TAB PO PRN (01:40)
[2024-01-08] MEDS ORDERED: LORazepam 2 MG/ML VIAL IM PRN (01:40)
[2024-01-08] MEDS ORDERED: Water, Sterile 10 ML VIAL IM PRN (01:45)
[2024-01-08] MEDS ORDERED: Ziprasidone Mesylate 20 MG VIAL IM PRN (01:45)
[2024-01-08] MEDS ORDERED: MG-AL HYDROXIDE/SIMETICONE 30 ML UDC PO PRN (02:05)
[2024-01-08] MEDS ORDERED: ACETAMINOPHEN 325 MG TAB PO PRN (02:05)
[2024-01-08] MEDS ORDERED: Menthol/Zinc Oxide 4 GM THIN T PRN (02:10)
[2024-01-08] MEDS ORDERED: Albuterol Sulf/Ipratropium 3 ML VIAL NEB SCH (04:00)
[2024-01-08 07:11] LABS: HEMATOCRIT 34.9 % (37.0-47.0); MEAN CELL VOLUME 89.7 fl (81.0-99.0); MEAN CORPUSCULAR HGB 29.6 pg (27.0-31.0); MEAN PLATELET VOLUME 10.2 fl (9.6-12.3); PLATELET COUNT AUTOMATED 165 10*3/uL (130-400); RED BLOOD COUNT 3.89 10*6/uL (4.10-5.10); RED CELL DISTRI WIDTH 13.2 % (0-14.5); WHITE BLOOD COUNT 3.5 10*3/uL (4.8-10.8)
[2024-01-08 07:12] LABS: MANUAL DIFF REFLEX YES
[2024-01-08 07:27] LABS: BASOPHILS 1 % (0-1); OVALOCYTES FEW; PLATELET SUFFICIENCY NORMAL (NORMAL); POLYCHROMASIA SLIGHT; TOTAL CELLS COUNTED 100 #CELLS
[2024-01-08 07:28] LABS: BURR CELLS FEW
[2024-01-08] MEDS ORDERED: BUDESONIDE 0.5 MG AMP NEB SCH (08:00)
[2024-01-08 08:30] LABS: ALKALINE PHOSPHATASE 107 U/L (46-116); CHLORIDE 102 mmol/L (98-107); CHOLESTEROL 156 mg/dL (<200); LDL CHOLESTEROL 76 mg/dL (9-159); POTASSIUM 3.6 mmol/L (3.4-5.1); SGPT/ALT 19 U/L (5-49); TOTAL PROTEIN 5.9 gm/dL (6.0-8.0); TRIGLYCERIDES 67 mg/dl (<150)
[2024-01-08 08:36] LABS: BUN < 5 mg/dl (9-23)
[2024-01-08] MEDS ORDERED: Rivastigmine Tartrate 4.6 MG/24 HR PATCH T SCH (09:00)
[2024-01-08] MEDS ORDERED: RISPERIDONE 0.5 MG TAB PO SCH (09:00)
[2024-01-08] MEDS ORDERED: Phenytoin Sodium, Extended 100 MG CAP PO SCH ×2 (09:00→21:00)
[2024-01-08 09:22] LABS: VITAMIN D, 25-HYDROXY 56.3 ng/mL (30-100)
[2024-01-08] MEDS ORDERED: SODIUM CHLORIDE 1 GM TAB PO SCH (10:00)
[2024-01-08] MEDS ORDERED: DIVALPROEX ER 500 MG TAB PO SCH ×2 (10:00→21:00)
[2024-01-08] MEDS ORDERED: Doxycycline Hyclate 100 MG CAP PO SCH (10:00)
[2024-01-08] MEDS ORDERED: TOPIRAMATE 25 MG TAB PO SCH (10:00)
[2024-01-08 20:00] VITALS: BP 124/86
[2024-01-08] MEDS ORDERED: Memantine Hydrochloride 5 MG TAB PO SCH (21:00)
[2024-01-08] MEDS ORDERED: Prazosin Hydrochloride 1 MG CAP PO SCH (21:00)
[2024-01-08] MEDS ORDERED: ATORVASTATIN CALCIUM 20 MG TAB PO SCH (22:00)
[2024-01-08] MEDS ORDERED: Mirtazapine 15 MG TAB PO SCH (22:00)
[2024-01-09] MEDS ORDERED: ALENDRONATE SODIUM 70 MG TAB PO SCH (06:00)
[2024-01-09] MEDS ORDERED: Rivastigmine Tartrate 9.5 MG/24 HR PATCH T SCH (09:00)
[2024-01-09] MEDS ORDERED: VITAMIN E 400 IU CAP PO SCH (09:00)
[2024-01-09] MEDS ORDERED: Albuterol Sulf/Ipratropium 3 ML VIAL NEB PRN (09:05)
[2024-01-09] MEDS ORDERED: BUDESONIDE 0.5 MG AMP NEB PRN (09:05)
[2024-01-09] MEDS ORDERED: AMMONIUM LACTATE 12% LOTION T SCH (10:40)
[2024-01-09 20:00] VITALS: BP 114/71
[2024-01-09] MEDS ORDERED: Memantine Hydrochloride 5 MG TAB PO SCH (21:00)
[2024-01-10 07:57] VITALS: BP 109/73
[2024-01-10 19:22] VITALS: BP 116/68
[2024-01-10] MEDS ORDERED: Mirtazapine 15 MG TAB PO SCH (21:00)
[2024-01-11 08:30] VITALS: BP 124/68
[2024-01-11] MEDS ORDERED: Memantine Hydrochloride 5 MG TAB PO SCH (09:20)
[2024-01-11 13:03] LABS: BUN 7 mg/dl (9-23); CHLORIDE 101 mmol/L (98-107); POTASSIUM 3.8 mmol/L (3.4-5.1)
[2024-01-11 20:00] VITALS: BP 105/54
[2024-01-11] MEDS ORDERED: Memantine Hydrochloride 10 MG TAB PO SCH (21:00)
[2024-01-12 07:55] VITALS: BP 105/66
[2024-01-12] MEDS ORDERED: TOPIRAMATE25 M3 PO (10:28)
[2024-01-12] MEDS ORDERED: NAMENDA-5 PO (10:28)
[2024-01-12] MEDS ORDERED: MEMANTINE HCL10 MG PO (10:28)
[2024-01-12] MEDS ORDERED: DIVALPROEX SOD500 M1 PO (10:28)
[2024-01-12] MEDS ORDERED: VITAMIN E180 M1 PO (10:28)
[2024-01-12] MEDS ORDERED: MIRTAZAPINE15 M2 PO (10:28)
[2024-01-12] MEDS ORDERED: RIVASTIGMINE1 EAC1 T (10:28)
[2024-01-12] MEDS ORDERED: MINIPRESS1 M1 PO (10:28)
[2024-01-12] MEDS ORDERED: Ondansetron Hydrochloride 4 MG TAB PO PRN (16:55)
== END 2024-01-12 19:16 | DRG 758 ==
LOC: 3N 22:05
PROVIDERS: Student in an Organized Health Care Education/Training Program; ADMIT Psychiatry & Neurology Psychiatry; ATTEND Psychiatry & Neurology Psychiatry
PROC: GZHZZZZ Group Psychotherapy (ICD-10-PCS; principal; 2024-01-10)
DX: F63.81 Intermittent explosive disorder (principal); E44.1 Mild protein-calorie malnutrition; G93.41 Metabolic encephalopathy; G30.9 Alzheimer's disease, unspecified; F33.9 Major depressive disorder, recurrent, unspecified; G40.909 Epilepsy, unspecified, not intractable, without status epilepticus; N30.00 Acute cystitis without hematuria; E87.1 Hypo-osmolality and hyponatremia; R29.6 Repeated falls; F02.80 Dementia in other diseases classified elsewhere, unspecified severity, without behavioral disturbance, psychotic disturbance, mood disturbance, and anxiety; J44.9 Chronic obstructive pulmonary disease, unspecified; I10 Essential (primary) hypertension; F17.210 Nicotine dependence, cigarettes, uncomplicated; J41.0 Simple chronic bronchitis; J96.10 Chronic respiratory failure, unspecified whether with hypoxia or hypercapnia; E55.9 Vitamin D deficiency, unspecified; Z88.0 Allergy status to penicillin; Z88.8 Allergy status to other drugs, medicaments and biological substances; Z91.018 Allergy to other foods; Z86.73 Personal history of transient ischemic attack (TIA), and cerebral infarction without residual deficits; Z80.9 Family history of malignant neoplasm, unspecified; Z83.3 Family history of diabetes mellitus; Z68.24 Body mass index [BMI] 24.0-24.9, adult

== ENCOUNTER 2024-01-12 18:07 | Emergency (ER) | payer MEDICAID ==
[~2024-01-12] VITALS: Ht 165.1 cm; Wt 63.5 kg
[~2024-01-12 18:07] MED LIST changes: +DIVALPROEX SOD500 M1 PO; +MEMANTINE HCL10 MG PO; +MINIPRESS1 M1 PO; +MIRTAZAPINE15 M2 PO; +NAMENDA-5 PO; +RIVASTIGMINE1 EAC1 T; +TOPIRAMATE25 M3 PO; +VITAMIN E180 M1 PO
[2024-01-12] MEDS ORDERED: SODIUM CHLORIDE 0.9% 1,000 ML IV ONE (18:15)
[2024-01-12 18:24] VITALS: BP 127/68
[2024-01-12 18:24] LABS: BASO % 0.4 % (0.0-1.0); HEMATOCRIT 36.5 % (37.0-47.0); LYMPH # 0.6 10*3/uL (1.3-4.4); LYMPH % 11.1 % (27.0-41.0); MEAN CELL VOLUME 90.8 fl (81.0-99.0); MEAN CORPUSCULAR HGB 29.4 pg (27.0-31.0); MEAN CORPUSCULAR HGB CONC 32.3 g/dl (33.0-37.0); MEAN PLATELET VOLUME 10.3 fl (9.6-12.3); MONO # 0.5 10*3/uL (0.1-1.0); MONO % 9.7 % (3.0-9.0); NEUT % 78.6 % (47.0-73.0); PLATELET COUNT AUTOMATED 193 10*3/uL (130-400); RED BLOOD COUNT 4.02 10*6/uL (4.10-5.10); RED CELL DISTRI WIDTH 13.5 % (0-14.5)
[2024-01-12 18:45] LABS: ALKALINE PHOSPHATASE 143 U/L (46-116); BUN 7 mg/dl (9-23); CHLORIDE 103 mmol/L (98-107); LIPASE 25 U/L (12-53); POTASSIUM 3.6 mmol/L (3.4-5.1); SGPT/ALT 18 U/L (5-49); TOTAL PROTEIN 6.9 gm/dL (6.0-8.0)
[2024-01-12] MEDS ORDERED: Ondansetron Hydrochloride 4 MG/2 ML VIAL IV ONE (19:00)
[2024-01-12] MEDS ORDERED: IOHEXOL 300 MG/ML 100 ML VIAL IV ONE (19:10)
[2024-01-12 19:30] LABS: BILIRUBIN Negative (Negative); BLOOD Negative (Negative); CLARITY Cloudy (Clear); COLOR Yellow (Yellow); GLUCOSE Negative (Negative); KETONE 1+ (Negative); LEUKO ESTERASE Negative (Negative); NITRITE Negative (Negative); SPECIFIC GRAVITY 1.015 (1.001-1.030); UROBILINOGEN 0.2 E.U./dl (0.0-1.0)
[2024-01-12 19:37] LABS: BACTERIA 1+; RBC 0-2 rbc/hpf (0-2); WBC 0-2 wbc/hpf (0-5)
== END 2024-01-12 23:42 ==
LOC: ED 18:07
PROVIDERS: Internal Medicine
DX: S02.40CA Maxillary fracture, right side, initial encounter for closed fracture (principal); Z20.822 Contact with and (suspected) exposure to COVID-19; A08.4 Viral intestinal infection, unspecified; R79.82 Elevated C-reactive protein (CRP); E87.1 Hypo-osmolality and hyponatremia; E44.1 Mild protein-calorie malnutrition; Z68.1 Body mass index [BMI] 19.9 or less, adult; D64.9 Anemia, unspecified; I50.9 Heart failure, unspecified; F41.9 Anxiety disorder, unspecified; J44.9 Chronic obstructive pulmonary disease, unspecified; M19.90 Unspecified osteoarthritis, unspecified site; F32.A Depression, unspecified; F17.200 Nicotine dependence, unspecified, uncomplicated; Z88.0 Allergy status to penicillin; Z88.6 Allergy status to analgesic agent; Z91.018 Allergy to other foods; Z98.890 Other specified postprocedural states; Z90.49 Acquired absence of other specified parts of digestive tract; W06.XXXA Fall from bed, initial encounter; Y93.89 Activity, other specified; Y92.531 Health care provider office as the place of occurrence of the external cause; Y99.8 Other external cause status

== ENCOUNTER 2024-01-13 19:33 | Observation (INO) | payer MEDICAID ==
[~2024-01-13] VITALS: Ht 170.1 cm; Wt 77.1 kg
[2024-01-13 19:43] VITALS: BP 144/73
[2024-01-13] MEDS ORDERED: Ziprasidone Mesylate 20 MG VIAL IM ONE (23:40)
[2024-01-13 23:49] VITALS: BP 138/76
[2024-01-14] MEDS ORDERED: Albuterol Sulfate 2.5 MG/3 ML VIAL NEB PRN (02:40)
[2024-01-14] MEDS ORDERED: BUDESONIDE 0.5 MG AMP NEB SCH (03:00)
[2024-01-14] MEDS ORDERED: BISACODYL 5 MG TAB PO PRN (03:05)
[2024-01-14] MEDS ORDERED: Magnesium Hydroxide 30 ML UDC PO PRN (03:05)
[2024-01-14] MEDS ORDERED: BISACODYL 10 MG SUPP R PRN (03:05)
[2024-01-14] MEDS ORDERED: ACETAMINOPHEN 325 MG TAB PO PRN (03:05)
[2024-01-14] MEDS ORDERED: Ondansetron Hydrochloride 4 MG/2 ML VIAL IV PRN (03:05)
[2024-01-14] MEDS ORDERED: ACETAMINOPHEN 650 MG SUPP R PRN (03:05)
[2024-01-14] MEDS ORDERED: Albuterol Sulf/Ipratropium 3 ML VIAL NEB SCH ×2 (03:05→04:00)
[2024-01-14] MEDS ORDERED: Acetaminophen/Oxycodone 5 MG/325 MG TABLET PO PRN (03:15)
[2024-01-14 07:02] LABS: BILIRUBIN Negative (Negative); BLOOD Negative (Negative); CLARITY Cloudy (Clear); COLOR Yellow (Yellow); GLUCOSE Negative (Negative); KETONE Negative (Negative); LEUKO ESTERASE Trace (Negative); NITRITE Negative (Negative); PH 6.5 (4.5-8.0); SPECIFIC GRAVITY 1.015 (1.001-1.030)
[2024-01-14 08:30] VITALS: BP 107/50
[2024-01-14] MEDS ORDERED: Memantine Hydrochloride 5 MG TAB PO SCH (09:00)
[2024-01-14] MEDS ORDERED: Rivastigmine Tartrate 9.5 MG/24 HR PATCH T SCH (09:00)
[2024-01-14] MEDS ORDERED: Enoxaparin Sodium 40 MG/0.4 ML SYR SC SCH (10:00)
[2024-01-14] MEDS ORDERED: SODIUM CHLORIDE 1 GM TAB PO SCH (10:00)
[2024-01-14] MEDS ORDERED: Phenytoin Sodium, Extended 100 MG CAP PO SCH ×2 (10:00→22:00)
[2024-01-14] MEDS ORDERED: Fluticasone Propionate/Salmeterol 250/50 diskus INH SCH (10:00)
[2024-01-14] MEDS ORDERED: TOPIRAMATE 100 MG TAB PO SCH (10:00)
[2024-01-14 11:15] LABS: BACTERIA 3+; CALCIUM OXALATE CRYSTALS 2+
[2024-01-14] MEDS ORDERED: NAMENDA-5 PO (11:31)
[2024-01-14] MEDS ORDERED: OXYCODONE-ACET1 EAC3 PO (11:34)
[2024-01-14] MEDS ORDERED: DOXYCYCLINE HY100 M3 PO (11:34)
[2024-01-14] MEDS ORDERED: FEVER REDUCER650 MG R (11:34)
[2024-01-14] MEDS ORDERED: DIVALPROEX ER 500 MG TAB PO SCH (21:00)
[2024-01-14] MEDS ORDERED: Mirtazapine 15 MG TAB PO SCH (21:00)
[2024-01-14] MEDS ORDERED: Memantine Hydrochloride 10 MG TAB PO SCH (21:00)
[2024-01-14] MEDS ORDERED: ATORVASTATIN CALCIUM 20 MG TAB PO SCH (22:00)
[2024-01-18] MEDS ORDERED: ALENDRONATE SODIUM 70 MG TAB PO SCH (07:00)
== END 2024-01-14 14:26 ==
LOC: ED 19:33 → EDHOLD 01-14 01:56
PROVIDERS: Student in an Organized Health Care Education/Training Program; ADMIT Internal Medicine; ATTEND Internal Medicine
DX: R53.1 Weakness (principal); R29.6 Repeated falls; S02.92XA Unspecified fracture of facial bones, initial encounter for closed fracture; G40.909 Epilepsy, unspecified, not intractable, without status epilepticus; I10 Essential (primary) hypertension; J44.9 Chronic obstructive pulmonary disease, unspecified; R63.1 Polydipsia; F54 Psychological and behavioral factors associated with disorders or diseases classified elsewhere; M16.12 Unilateral primary osteoarthritis, left hip; W19.XXXA Unspecified fall, initial encounter; Y92.89 Other specified places as the place of occurrence of the external cause; Y93.89 Activity, other specified; Y99.8 Other external cause status

== ENCOUNTER 2024-01-20 13:34 | Emergency (ER) | payer MEDICAID ==
[~2024-01-20] VITALS: Wt 70.8 kg
[~2024-01-20 13:34] MED LIST changes: +FEVER REDUCER650 MG R; +OXYCODONE-ACET1 EAC3 PO
[2024-01-20 13:59] LABS: BASO % 0.4 % (0.0-1.0); EOS # 0.2 10*3/uL (0.0-0.4); EOS % 3.5 % (1.0-4.0); HEMATOCRIT 36.8 % (37.0-47.0); LYMPH # 0.7 10*3/uL (1.3-4.4); LYMPH % 13.7 % (27.0-41.0); MEAN CELL VOLUME 92.9 fl (81.0-99.0); MEAN CORPUSCULAR HGB 29.3 pg (27.0-31.0); MEAN CORPUSCULAR HGB CONC 31.5 g/dl (33.0-37.0); MEAN PLATELET VOLUME 9.5 fl (9.6-12.3); MONO # 0.8 10*3/uL (0.1-1.0); MONO % 15.6 % (3.0-9.0); NEUT # 3.6 10*3/uL (2.3-7.9); NEUT % 66.4 % (47.0-73.0); PLATELET COUNT AUTOMATED 232 10*3/uL (130-400); RED BLOOD COUNT 3.96 10*6/uL (4.10-5.10); RED CELL DISTRI WIDTH 13.9 % (0-14.5); WHITE BLOOD COUNT 5.4 10*3/uL (4.8-10.8)
[2024-01-20 14:10] LABS: ACT PARTIAL THROMBO TIME 27.9 SECONDS (20.0-32.1)
[2024-01-20 14:16] LABS: ALKALINE PHOSPHATASE 166 U/L (46-116); CHLORIDE 103 mmol/L (98-107); LIPASE 27 U/L (12-53); POTASSIUM 3.9 mmol/L (3.4-5.1); SGPT/ALT 10 U/L (5-49); TOTAL PROTEIN 6.8 gm/dL (6.0-8.0)
[2024-01-20 14:17] LABS: BUN < 5 mg/dl (9-23)
[2024-01-20] MEDS ORDERED: Midazolam Hydrochloride 2 MG/2 ML VIAL IM ONE ×2 (14:25→15:35)
[2024-01-20] MEDS ORDERED: Ondansetron Hydrochloride 4 MG/2 ML VIAL IM ONE (16:10)
[2024-01-20 16:55] LABS: BILIRUBIN Negative (Negative); BLOOD Negative (Negative); CLARITY Clear (Clear); COLOR Yellow (Yellow); GLUCOSE Negative (Negative); KETONE Trace (Negative); LEUKO ESTERASE Negative (Negative); NITRITE Negative (Negative); PH 7.5 (4.5-8.0); UROBILINOGEN 0.2 E.U./dl (0.0-1.0)
[2024-01-20 17:25] LABS: RBC 0-2 rbc/hpf (0-2)
[2024-01-20] MEDS ORDERED: LORazepam 2 MG/ML VIAL IV ONE (19:55)
[2024-01-20 20:01] VITALS: BP 112/53
== END 2024-01-20 21:07 | disposition short-term general hospital (02) ==
LOC: ED 13:34
PROVIDERS: Internal Medicine
DX: S02.401A Maxillary fracture, unspecified side, initial encounter for closed fracture (principal); S02.40EA Zygomatic fracture, right side, initial encounter for closed fracture; S02.849A Fracture of lateral orbital wall, unspecified side, initial encounter for closed fracture; S02.19XA Other fracture of base of skull, initial encounter for closed fracture; R41.82 Altered mental status, unspecified; F41.9 Anxiety disorder, unspecified; J44.9 Chronic obstructive pulmonary disease, unspecified; F32.A Depression, unspecified; F17.210 Nicotine dependence, cigarettes, uncomplicated; Z88.0 Allergy status to penicillin; Z88.6 Allergy status to analgesic agent; Z91.018 Allergy to other foods; Z98.890 Other specified postprocedural states; Z90.49 Acquired absence of other specified parts of digestive tract; X58.XXXA Exposure to other specified factors, initial encounter; Y93.89 Activity, other specified; Y92.129 Unspecified place in nursing home as the place of occurrence of the external cause; Y99.8 Other external cause status

== ENCOUNTER 2024-03-03 20:44 | Emergency (ER) | payer MEDICAID ==
[~2024-03-03] VITALS: Ht 152.4 cm; Wt 69.9 kg
[2024-03-03 20:45] VITALS: BP 124/83
== END 2024-03-04 00:45 ==
LOC: ED 20:44
DX: S00.12XA Contusion of left eyelid and periocular area, initial encounter (principal); S00.81XA Abrasion of other part of head, initial encounter; F41.9 Anxiety disorder, unspecified; J44.9 Chronic obstructive pulmonary disease, unspecified; F32.A Depression, unspecified; M19.90 Unspecified osteoarthritis, unspecified site; F17.200 Nicotine dependence, unspecified, uncomplicated; Z88.0 Allergy status to penicillin; Z88.6 Allergy status to analgesic agent; Z91.018 Allergy to other foods; Z98.890 Other specified postprocedural states; Z90.49 Acquired absence of other specified parts of digestive tract; W05.0XXA Fall from non-moving wheelchair, initial encounter; Y93.89 Activity, other specified; Y92.129 Unspecified place in nursing home as the place of occurrence of the external cause; Y99.8 Other external cause status

== ENCOUNTER 2024-03-29 18:47 | Emergency (ER) | payer MEDICAID ==
[2024-03-29 18:58] VITALS: BP 107/55
[2024-03-29] MEDS ORDERED: ACETAMINOPHEN 325 MG TAB PO ONE (20:00)
[2024-03-30] MEDS ORDERED: ARTIFICIAL TEAR1514 OP (16:33)
[2024-03-30] MEDS ORDERED: DEPAKOTE125 M1 PO (16:39)
[2024-03-30] MEDS ORDERED: LACTULOSE10 GM/151 PO (16:40)
[2024-03-30] MEDS ORDERED: CARNITOR330 MG PO (16:54)
[2024-03-30] MEDS ORDERED: ASPERCREME LID1 EACH T (16:55)
[2024-03-30] MEDS ORDERED: LITHIUM CARBON300 MG PO (16:58)
[2024-03-30] MEDS ORDERED: MIRALAX119 GM PO (17:00)
[2024-03-30] MEDS ORDERED: PRAZOSIN HCL1 MG PO (17:00)
[2024-03-30] MEDS ORDERED: EXELON1 EAC1 T (17:01)
[2024-03-30] MEDS ORDERED: MYLICON, MYLANT80 MG PO (17:02)
[2024-03-30] MEDS ORDERED: SENNA8.6 MG PO (17:02)
[2024-03-30] MEDS ORDERED: SODIUM CHLORI1000 M5 PO (17:11)
[2024-03-30] MEDS ORDERED: TOPAMAX50 MG PO (17:12)
[2024-03-30] MEDS ORDERED: VITAMIN E400 UNIT PO (17:13)
[2024-03-30] MEDS ORDERED: XANAX0.5 MG PO (17:13)
== END 2024-03-29 22:23 | disposition home or self-care (01) ==
LOC: ED 18:47
DX: S63.501A Unspecified sprain of right wrist, initial encounter (principal); J44.9 Chronic obstructive pulmonary disease, unspecified; I10 Essential (primary) hypertension; F41.9 Anxiety disorder, unspecified; M19.90 Unspecified osteoarthritis, unspecified site; F32.A Depression, unspecified; F17.200 Nicotine dependence, unspecified, uncomplicated; Z88.0 Allergy status to penicillin; Z88.6 Allergy status to analgesic agent; Z91.018 Allergy to other foods; Z98.890 Other specified postprocedural states; Z90.49 Acquired absence of other specified parts of digestive tract; W01.0XXA Fall on same level from slipping, tripping and stumbling without subsequent striking against object, initial encounter; Y93.89 Activity, other specified; Y92.129 Unspecified place in nursing home as the place of occurrence of the external cause; Y99.8 Other external cause status